=== PATIENT | male | born 1975 | race African-American/Black ===

== ENCOUNTER 2023-06-27 02:28 | Inpatient (IN) | payer MEDICAID, SELFPAY ==
[2023-06-27] VITALS (77 sets, daily range): BP systolic 89–177; BP diastolic 65–118; PULSE 71–117; RESP 16–36; TEMP 35–38.8; O2SAT 79–100; BMI 24.5
--- NOTE | ~2023-06-27 | XR_ITS ---
EXAMINATION: XR chest PICC line INDICATION: PICC insertion TECHNIQUE: Portable AP chest at 1345 hours COMPARISON: 0507 hours FINDINGS: A left upper extremity PICC has been inserted which ends with its tip at the superior cavoa trial junction. There are two left-sided chest tubes. No pneumothorax is identified. Diffuse opacitie s of the left lung and airspace opacities of the right mid and lower lung zones persist but have impr ernu. A small left pleural effusion is suggested. The cardiomediastinal silhouette is stable. Subcuta neous gas in the left chest wall has decreased. The nasogastric tube is in the stomach. The endotrach eal tube ends approximately 5.9 cm above the tamera. IMPRESSION: 1. Left PICC ending with its tip at the superior cavoatrial junction. 2. Bilateral airspace opacities as described above with interval improvement, consistent with pulmona ry edema versus pneumonia versus atelectasis. Reviewed, dictated and finalized at location F. SORTER IMPRESSION: 1. Left PICC ending with its tip at the superior cavoatrial junction. 2. Bilateral airspace opacities as described above with interval improvement, c onsistent with pulmonary edema versus pneumonia versus atelectasis.
--- NOTE | ~2023-06-27 | XR_ITS ---
Portable chest x-ray Comparison: 06/29/2023 Clinical History: Left pneumothorax Findings: 2 left-sided chest tubes and left-sided PICC line are in place. No definite pneumothorax. Left basilar and left perihilar consolidation is again present. There is mild right perihilar airspac e disease. Cardiomediastinal silhouette is stable. Bones and soft tissues are unremarkable. Impression: Stable support tubes. No visible pneumothorax. Left basilar and bilateral perihilar consolidation, left lung worse than right. Correlate for pulmona ry edema/atelectasis versus pneumonia. Reviewed, dictated and finalized at [facility]. TRICAL ENGINEERING INTERN Impression: Stable support tubes. No visible pneumothorax. Left basilar and bilateral perihilar consolidation, left lung worse than right. Correlate for pulmonary edema/atelectasis versus pneumonia.
--- NOTE | ~2023-06-27 | XR_ITS ---
XR chest 1V portable 07/03/2023 06:28 Indication: Left pneumothorax Procedure: AP portable chest Comparison: Comparison to multiple prior studies sequentially, with oldest reviewed study dated 06/18. Findings: Left subclavian PICC line tip in the SVC. Bilateral airspace disease is increased. Small le ft pleural effusion. Small left apical pneumothorax unchanged. Impression: 1: Bilateral airspace disease increased, differential includes edema and pneumonia. 2: Stable small left hydropneumothorax. Reviewed, dictated and finalized at location A. MACY TECHNICIAN INPATIENT Impression: 1: Bilateral airspace disease increased, differential includes edema and pneumo georges. 2: Stable small left hydropneumothorax.
--- NOTE | ~2023-06-27 | XR_ITS ---
CORRECTED REPORT Examination description changed [facility] [place] 06/29/23 This report was recreated on 06/29/23. Original report was IC CLERK EXAMINATION: XR chest ET placement INDICATION: Endotracheal tube insertion TECHNIQUE: Portable AP chest at 0303 hours COMPARISON: 0242 hours FINDINGS: The endotracheal tube ends approximately 5.3 cm above the tamera. The nasogastric tube is followed as far as the stomach. Its tip is beyond the inferior margin of the radiograph. A left apical pneumothorax has increased in size. Airspace opacities of the left lung have also increased. No pleural effusion is identified. The cardiomediastinal silhouette is stable. IMPRESSION: 1. Enlarging left pneumothorax. Finding has been managed at the time of interpretation. 2. Increasing opacities of the left lung which could reflect and/or pulmonary edema as well as atelectasis. 3. Support tubes in adequate position. Reviewed, dictated and finalized at location F. IC CLERK MTDD IMPRESSION: 1. Enlarging left pneumothorax. Finding has been managed at the time of interpr etation. 2. Increasing opacities of the left lung which could reflect and/or pulmonary e garry as well as atelectasis. 3. Support tubes in adequate position.
--- NOTE | ~2023-06-27 | XR_ITS ---
CORRECTED REPORT Examination description changed [facility] [place] 06/29/23 This report was recreated on 06/29/23. Original report was OR LINUX SYSTEMS ADMINISTRATOR EXAMINATION: XR chest-chest tube insert/pos EXAMINATION: XR chest 1V portable INDICATION: Second chest tube placement TECHNIQUE: Portable AP chest at 0507 hours COMPARISON: 0333 hours FINDINGS: A second left-sided chest tube has been inserted which courses towards the left lung apex. The left-sided pneumothorax appears to continue to decrease in size although evaluation is somewhat limited by development of diffuse subcutaneous gas in the left chest wall. There is no pleural effusion. There are stable airspace opacities of the left lung. There are increasing airspace opacities of the right middle lower lung zones. The heart size is normal. IMPRESSION: 1. Apparent continued decrease in size of the left pneumothorax status post second chest tube insertion. 2. Stable diffuse lung disease of the left lung and worsening airspace opacities of the right lung, consistent with pneumonia versus pulmonary edema versus atelectasis. Reviewed, dictated and finalized at location F. OR LINUX SYSTEMS ADMINISTRATOR MTDD IMPRESSION: 1. Apparent continued decrease in size of the left pneumothorax status post sec ond chest tube insertion. 2. Stable diffuse lung disease of the left lung and worsening airspace opacitie s of the right lung, consistent with pneumonia versus pulmonary edema versus at electasis.
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
--- NOTE | ~2023-06-27 | XR_ITS ---
Portable chest x-ray Comparison: 06/27/2023 Clinical History: Respiratory failure Findings: Endotracheal tube, NG tube, and 2 left-sided chest tubes are in place. Small left pleural effusion and left lower lobe atelectasis are present. No definite pneumothorax appreciated. Right bryan g clear. Cardiomediastinal silhouette is stable. Bones and soft tissues are unremarkable. Impression: Support tubes, as above. No definite left pneumothorax seen. Probable left lower lobe atelectasis with small left pleural effusion. Correlate clinically for pneum onia. Reviewed, dictated and finalized at location . IT INTERN Impression: Support tubes, as above. No definite left pneumothorax seen. Probable left lower lobe atelectasis with small left pleural effusion. Correlat e clinically for pneumonia.
--- NOTE | ~2023-06-27 | CT_ITS ---
EXAMINATION: CT brain wo con INDICATION: Altered mental status COMPARISON: None TECHNIQUE: Standard unenhanced head CT. The dose-length product (DLP) was 605.33 mGy-cm. The mA was a djusted according to patient size. Iterative reconstruction technique was employed. FINDINGS: No intracranial hemorrhage, acute infarction, or abnormal mass lesion. The ventricles are n ormal. No abnormal mass effect or midline shift. The berger-white matter differentiation is normal. The basal cisterns are patent. There is a round metallic foreign body in the right orbit. Additional rou nd metallic foreign bodies are also seen in right periorbital soft tissues as well as the left tempor al scalp. There is mild mucosal thickening of the paranasal sinuses. IMPRESSION: 1. No acute intracranial abnormality. 2. Metallic foreign bodies including one in the right orbit. Reviewed, dictated and finalized at location F. ING MACHINE OPERATOR AUTOMATIC
--- NOTE | ~2023-06-27 | XR_ITS ---
CORRECTED REPORT Examination description changed [facility] 06/29/23 This report was recreated on 06/29/23. Original report was E GRADER TENDER EXAMINATION: XR chest-chest tube insert/pos INDICATION: Chest tube insertion TECHNIQUE: Portable AP chest at 0334 hours COMPARISON: 0303 hours FINDINGS: A left-sided chest tube has been inserted. There has been slight decrease in size of the left apical pneumothorax. Airspace opacities of the left lung persists without significant change. The cardiomediastinal silhouette is stable. Endotracheal and nasogastric tubes are unchanged. There is gas in the left chest wall consistent with chest tube insertion. IMPRESSION: 1. Slight decrease in size of the left pneumothorax post chest tube insertion. Otherwise, no significant change. Reviewed, dictated and finalized at location F. E GRADER TENDER MTDD
--- NOTE | ~2023-06-27 | CT_ITS ---
EXAMINATION: CT diagnostic chest wo con DATE: 06/27/2023 04:28 INDICATION: Pneumothorax TECHNIQUE: Computed tomography (CT) of the chest was performed without intravenous contrast. The dose -length product (DLP) was 380.85 mGy-cm. Automated exposure control and iterative reconstruction tech nique were employed. COMPARISON: None FINDINGS: There is a moderate-sized left pneumothorax with slight rightward shift of the mediastinum. A left-sided chest tube is in place which courses into the major fissure. There is a small amount of debris in the chest tube. There is near complete opacification of the right lower lobe. Patchy airsp higinio opacities are present in the right middle and upper lobes. There are moderate airspace opacities throughout the left lung. There is no pleural effusion. No pathologically enlarged thoracic lymph nod es are identified. The heart size is normal. Subcutaneous gas is noted in the left chest wall related to chest tube insertion. There is a probable nondisplaced anterolateral fracture of the left sixth r ib. Endotracheal and nasogastric tubes are in adequate position. IMPRESSION: 1. Left tension pneumothorax with chest tube insertion. 2. Diffuse lung disease as described above, consistent with pneumonia and/or aspiration. 3. Probable nondisplaced anterolateral fracture of the left sixth rib. These findings were transmitted to the Emergency Department at 0509 hours on 06/27/2023 by the [facility] Radiologist. Reviewed, dictated and finalized at location F. RINTENDENT POWER IMPRESSION: 1. Left tension pneumothorax with chest tube insertion. 2. Diffuse lung disease as described above, consistent with pneumonia and/or as piration. 3. Probable nondisplaced anterolateral fracture of the left sixth rib. These findings were transmitted to the Emergency Department at 0509 hours on by the [facility] Radiologist.
--- NOTE | ~2023-06-27 | XR_ITS ---
Portable chest x-ray Comparison: 06/30/2023 Clinical History: Left pneumothorax Findings: 2 left-sided chest tubes, and left-sided PICC line, Ramiro place. No definite pneumothorax i dentified. There is patchy bibasilar and perihilar airspace disease. Possible minimal pleural effusio ns. Cardiomediastinal silhouette is stable. Bones and soft tissues are unremarkable. Impression: Stable support tubes. No visible pneumothorax. Patchy bibasilar and perihilar airspace disease. Correlate for atelectasis/pulmonary edema versus pne umonia. Probable minimal pleural effusions. Reviewed, dictated and finalized at location . TEMPERER Impression: Stable support tubes. No visible pneumothorax. Patchy bibasilar and perihilar airspace disease. Correlate for atelectasis/pulm onary edema versus pneumonia. Probable minimal pleural effusions.
--- NOTE | ~2023-06-27 | XR_ITS ---
EXAMINATION: XR abdomen gastric tube insert INDICATION: OG placement TECHNIQUE: Portable AP [id number] at 0336 hours COMPARISON: None available FINDINGS: The OG tube is in the stomach. The bowel gas pattern is nonspecific. IMPRESSION: 1. OG tube in the stomach. Reviewed, dictated and finalized at location F. IGERATION TECHNICIAN IMPRESSION: 1. OG tube in the stomach.
--- NOTE | ~2023-06-27 | XR_ITS ---
EXAMINATION: XR chest 1V portable INDICATION: Chest tube removal TECHNIQUE: Portable AP chest at 1052 hours COMPARISON: 0553 hours FINDINGS: The chest tubes have been removed. There is a small recurrent left apical pneumothorax. Air space opacities of the lung bases and left midlung zone persist without significant change. There is no pleural effusion. The cardiomediastinal silhouette is normal. A left upper extremity PICC ends wit h this tip in the midsuperior vena cava. IMPRESSION: 1. Small left apical pneumothorax status post chest tube removal, otherwise no change. These findings were discussed with SHANEL Layne on [address] [place] [address] at 1106 hours on 07/02/2023. Reviewed, dictated and finalized at location B. ER STRUCTURAL MILL IMPRESSION: 1. Small left apical pneumothorax status post chest tube removal, otherwise no change. These findings were discussed with SHANEL Layne on [address] [place] [address] at 1106 mat[address] rs on 07/02/2023.
--- NOTE | ~2023-06-27 | XR_ITS ---
EXAMINATION: XR chest 1V portable INDICATION: Left pneumothorax TECHNIQUE: Portable AP chest at 1300 hours COMPARISON: 1052 hours FINDINGS: There is a persistent small left pneumothorax with interval decrease in size. A right upper extremity PICC ends with its tip in the superior vena cava. Airspace opacities of the lung bases and left midlung zone persists without significant change. The cardiomediastinal silhouette is there is no pleural effusion. IMPRESSION: 1. Small left apical pneumothorax with interval decrease in size. 2. Airspace opacities of the lung bases and left midlung zone, consistent with atelectasis versus pne umonia. Reviewed, dictated and finalized at location B. NER TRANSPORT TECHNICIAN IMPRESSION: 1. Small left apical pneumothorax with interval decrease in size. 2. Airspace opacities of the lung bases and left midlung zone, consistent with atelectasis versus pneumonia.
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
--- NOTE | ~2023-06-27 | XR_ITS ---
XR chest 2V 07/04/2023 11:31 Indication: Follow-up pneumothorax Procedure: 2 view chest Comparison: Comparison to multiple prior studies sequentially, with oldest reviewed study dated 06/18. Findings: Stable small left hydropneumothorax. There is bibasilar airspace disease. Small pleural eff usions. PICC line tip in the SVC. There are metallic fragments overlying the left chest, likely bulle t fragments. Impression: 1: Bibasilar airspace disease, consistent with pneumonia. 2: Stable small left hydropneumothorax. Reviewed, dictated and finalized at location A. MAINTENANCE Impression: 1: Bibasilar airspace disease, consistent with pneumonia. 2: Stable small left hydropneumothorax.
--- NOTE | ~2023-06-27 | XR_ITS ---
Portable chest x-ray Comparison: 06/28/2023 Clinical History: Respiratory failure Findings: 2 left-sided chest tubes and left-sided PICC line are in place. No definite pneumothorax s een. There is left perihilar and left lower lobe consolidation. There is haziness in the right perihi lar region and right lower lobe. Cardiomediastinal silhouette is stable. Bones and soft tissues are unremarkable. Impression: Support tubes, as above. No pneumothorax. Bibasilar and bilateral perihilar consolidation, left worse than right. Correlate for pulmonary edema /atelectasis versus pneumonia. Reviewed, dictated and finalized at location . D INCOME ANALYST Impression: Support tubes, as above. No pneumothorax. Bibasilar and bilateral perihilar consolidation, left worse than right. Correla te for pulmonary edema/atelectasis versus pneumonia.
--- NOTE | ~2023-06-27 | XR_ITS ---
Portable chest x-ray Comparison: 07/01/2023 Clinical History: Left pneumothorax Findings: Left-sided chest tube and left-sided PICC line are in place. Second left chest tube has be en removed since prior exam. No definite pneumothorax seen. There is patchy bibasilar and perihilar a irspace disease. Cardiomediastinal silhouette is stable. Bones and soft tissues are unremarkable. Impression: Support tubes, as above. No visible pneumothorax. Patchy bibasilar and left perihilar airspace disease. Correlate for atelectasis or pneumonia. Reviewed, dictated and finalized at location . SOLUTIONS CONSULTANT Impression: Support tubes, as above. No visible pneumothorax. Patchy bibasilar and left perihilar airspace disease. Correlate for atelectasis or pneumonia.
--- NOTE | 2023-06-27 02:31 | PC.NURSE ---
Upon EDP Dr. Fang arrival, decision to intubate due to pt inability to have an open airway. 18 left AC was established at 0232. Pt vitals at 0232 were 67 HR, 19RR, 110/70 blood pressure. Pt was being machinally bagged and sat up and started speaking with EDp Dr. Fang stating My chest is hurting . EMS states that PD began chest compression but upon arrival by EMS chest compressions were not being initiated.
--- NOTE | 2023-06-27 02:35 | PC.NURSE ---
EDp Dr. Fang verbal order for .4 mg of narcan IV. Pt vital signs at this time were 66 HR, 84% on nonrebreather, 27 RR, 110/70. Pt transitioned to a bvm per EDP Dr. Fang. 20 guage IV initated in the pt left wrist at 0238. EDp Dr. Fang verbal order for 8mg of zofran was given through the right 18 guage. Pt was transitioned back to 15L nonrebreather via verbal order from EDP Dr. aFng. Decision to intubate was made at 0239. Pt vital signs are 64 HR, 83% nonrebreather, and 33 RR. 100 of rocc, and 20 of etamidate was verbally ordered by EDP Dr. Fang. Pt states that he does not actively have any allergies. Portable 1 view chest xray was ordered verbally by EDp Dr. Fang.
--- NOTE | 2023-06-27 02:44 | PC.NURSE ---
Chest xray portable 1view was taken, pt vitals at 0244 were 63 HR, 97% nonrebreather, 35 RR, 122/72 blood pressure. 18French mccartney catheter was initated. Pt breathing was shallow and breathing 23 breaths/ minute, decision by EDP Dr. Fang to intubate was made at 0246. Pt vitals signs at 0247 were 64 HR, 96 nonrebreather, 28 RR shallow, and 118/84. 20 of etamidate was pushed at 0248. 100 of rocc was given at 0248. Pt was actively being bagged by respiratory and EDP Dr. Fang. Color change present and 24 at lip, with bilateral lung sounds, with visual chest rise. Pt vital sign at 0251 were 102 HR, 97% bvm, 16 RR, 122/100 blood pressure. Verbal order by EDP Dr. Fang 4mg of ativan, and 1mg of dilaudid. EDp Dr. Fang verbally ordered a repeat chest xray portable 1 view.
--- NOTE | 2023-06-27 03:02 | PC.NURSE ---
EDp to place chest tube due to pneumothorax. 2gs of ancef and tdap were verbally ordered by EDp Dr. Fang. At 0310,bilateral soft wrist restraints due to pt being at risk to injury to himself and pulling at wires/ tubes. At [address] fang placed at 14 guage IV to the pt left chest due to pneumothorax, decision to insert test tube was made by EDp Dr. Fang. 2grams of ancef was started at 100mls/1 hour in a 50 ml bag. Chest tube initiated at 0316 and hooked up to atrium. Tdap shot given in the left bicep at 0317.Lot # [id number], exp. date is 11 OCT 2023.
[2023-06-27] MEDS: TETANUS/DIPHTHERIA TOXOIDS ADSORB 0.5 ML VIAL (*BKC) (03:24)
[2023-06-27] MEDS: LORazepam INJ (*CRX) 2 MG/ML VIAL 4 MG (03:26)
[2023-06-27] MEDS: ONDANSETRON INJ 4 MG/2 ML VIAL 8 MG (03:27)
[2023-06-27] MEDS: HYDROmorphone HCL INJ (*CRX) 1 MG/ML SYR ×2 (03:27→05:23)
[2023-06-27] MEDS: RAPID SEQUENCE INTUBATION KIT 1 EACH ×2 (03:31→05:23)
[2023-06-27 03:32] LABS: Basophils Percent Auto 0.3 % (0.2-1.2); Eosinophils Absolute Auto 0.2 K/mm3 (0-0.3); Eosinophils Percent Auto 1.4 % (0-4.4); Hematocrit 44.4 % (42.0-52.0); Hemoglobin 14.1 g/dL (14.0-18.0); Immature Granulocyte Absolute 0.22 K/mm3 (0.00-0.031); Immature Granulocyte Percent A 1.8 % (0-0.5); Lymphocytes Absolute Auto 6.53 K/mm3 (0.9-3.2); Lymphocytes Percent Auto 52.9 % (18.3-44.2); Mean Corpuscular HGB Conc 31.8 g/dl (32-36); Mean Corpuscular Hemoglobin 30.9 pg (26-34); Mean Corpuscular Volume 97.2 fl (80-100); Monocytes Absolute Auto 0.8 K/mm3 (0.1-0.6); Monocytes Percent Auto 6.7 % (2.6-8.5); Neutrophils Absolute Auto 4.6 K/mm3 (1.3-6.7); Neutrophils Percent Auto 36.9 % (45.5-73.1); Platelet Count Result 186 k/mm3 (150-375); Red Blood Count 4.57 M/mm3 (4.6-6.20); Red Cell Distribution Width 13.2 % (11.5-14.5); White Blood Count 12.4 K/mm3 (4.5-10.0)
--- NOTE | 2023-06-27 03:38 | ECG_ITS ---
Measurements Intervals [place] Rate: 78 P: 44 IA: 135 QRS: 22 QRSD: 100 T: 64 QT: 356 QTc: 408 Interpretive Statements SINUS RHYTHM WITH SINUS ARRHYTHMIA NO PREVIOUS ECG AVAILABLE FOR COMPARISON Electronically Signed On 06-27-2023 10:30:51 [employer]ARM HELPER by Ross Martinez M.D.
[2023-06-27] MEDS: SODIUM CHLORIDE 0.9% IV 2,000 ML 999 ML (03:40)
[2023-06-27 03:41] LABS: Alveolar/Arterial O2 Gradient 573.6 mmHg; Base Excess ABG -7.5 mEq/l (+/-2.0); Fractional Inspired Oxygen 100 %; HCO3 ABG 21.8 mEq/l (22.0-26.0); Oxygen Content ABG 19.4 %vol (16.0-22.0); Oxygen Saturation ABG 92.6 % (95.0-100.0); Oxyhemoglobin 87.9 % THb (90.0-100.0); PCO2 ABG 59.2 mmHg (35.0-45.0); PO2 ABG 80.2 mmHg (80.0-100.0); Total Hemoglobin 15.7 g/dL (12.0-18.0)
[2023-06-27 03:42] LABS: Device VENTILATOR; Modified Allen's Test Pass; Site Drawn RIGHT RADIAL; pH ABG 7.183 (7.350-7.450)
[2023-06-27 03:43] LABS: Arterial Blood Gas PEEP 5 cmH2O; Arterial Blood Gas Tidal Volume 500 ml; Arterial Blood Gas Vent Mode CMV; Arterial Blood Gas Ventilator rate 18 /MIN
[2023-06-27 03:44] LABS: Acetaminophen < 10 ug/mL (10-30); Ethanol 220 mg/dL (<10); Salicylate < 1.0 mg/dL (2-20)
[2023-06-27 03:46] LABS: Amphetamine Screen Urine Negative (Negative); Barbiturate Screen Urine Negative (Negative); Benzodiazepines Screen Urine Negative (Negative); Cannabinoid Screen Urine Negative (Negative); Cocaine Screen Urine Positive (Negative); Methadone Screen Urine Negative (Negative); Opiate Screen Urine Positive (Negative); Phencyclidine Screen Urine Negative (Negative)
[2023-06-27 03:46] LABS: Alanine Aminotransferase 39 U/L (6-50); Albumin Level 4.4 g/dL (3.5-5.1); Alkaline Phosphatase 58 U/L (38-126); Anion Gap 17 mmol/L (8-16); Aspartate Amino Transferase 107 U/L (17-59); Bilirubin,Total 0.5 mg/dL (0.2-1.3); Blood Urea Nitrogen 15 mg/dL (9-20); Calcium 8.9 mg/dL (8.4-10.2); Carbon Dioxide 20 mmol/L (22-30); Chloride 106 mmol/L (98-107); Estimated CRCL calculation 71 ml/min; Estimated Glomerular Filt Rate > 60; Glucose 113 mg/dL (65-110); Potassium 3.4 mmol/L (3.4-5.0); Sodium 143 mmol/L (137-145)
[2023-06-27 03:51] LABS: Appearance Urine Cloudy (Clear); Bacteria Urine None Seen /hpf; Bilirubin Urine Negative (Negative); Blood Urine 2+ (Negative); Color Urine Yellow (Yellow); Glucose Urine UA Negative (Negative); Ketones Urine Trace mg/dL (Negative); Leukocyte Esterase Ur Negative LEU/UL (Negative); Mucus Urine Present /lpf; Need Manual Microscopic Reviewed; Nitrate Urine Negative (Negative); Protein Urine 2+ mg/dL (Negative); RBC Urine 21-50 /hpf (0-2); Specific Grav Ur 1.018 (1.001-1.035); Squamous Epithelial Cell Urine None seen /hpf (Few); Urobilinogen Urine 0.2 mg/dL (<2.0); WBC Urine 0-5 /hpf; pH Urine 5.5 (5.0-9.0)
[2023-06-27 03:52] LABS: Add Urine Microscopic? YES
--- NOTE | 2023-06-27 03:54 | PC.NURSE ---
Addendum entered by Luisa Vann RN 06/27/23 04:49: propofol drip was at 20mcg/ hour NOT mls. Original Note: EDP Dr. Annalisa woodward order pt propofol drip to start at 20mls/ hour and increase by 5mls Q5 minutes as pt blood pressure will tolerate and pt condition.
[2023-06-27] MEDS: PROPOFOL IV EMULSION 100 ML 11.34 MG IV CONT (03:55)
[2023-06-27 04:06] LABS: Triglycerides 296 mg/dL (<150)
--- NOTE | 2023-06-27 04:48 | PC.NURSE ---
EDp Dr. Fang verbal order for 4mg of ativan and 1mg of diluadid. Edp dr. Fang to replace chest tube and put a new chest tube in at 0449.
--- NOTE | 2023-06-27 04:59 | PC.NURSE ---
EDp Dr. Fang verbal order 100mg of rocc due to pt arousal on sedation.
[2023-06-27] MEDS: LORazepam INJ (*CRX) 2 MG/ML VIAL ×2 (05:23)
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
[2023-06-27] MEDS: PIPERACILLN/TAZ 3.375GM/NS50ML 3.375 GM/50 ML BAG IVPB ×4 (06:51→23:53)
[2023-06-27] MEDS: PROPOFOL IV EMULSION 100 ML 28.3 MG (06:55)
--- NOTE | 2023-06-27 07:35 | PC.NURSE ---
Assuming care of PT.
[2023-06-27] MEDS: LACTATED RINGERS 1,000 ML 125 ML IV CONT ×2 (07:50→18:04)
--- NOTE | 2023-06-27 07:55 | PC.NURSE ---
On assessment noted OG tube clamped. Shabazz draining. Propofol infusing at 28.4ml. LR infusing. Dual chest tubes noted with CT 1 output of 30ml and 2nd CT output of 200 stagnant. Pt sedated with VS WNL. Lab at bedside. Inline suctioning performed. Pt continues with mechanical vent. PT GSC 3.
--- NOTE | 2023-06-27 09:34 | PM.IMHP ---
H&P: HPI History of Present Illness Date/Time: 06/27/23 09:34 Chief Complaint: Unresponsive Narrative: 47yo male with hx of drug use here after being found unresponsive by police. Patient is intubated and sedated and unable to provide a history. No phone numbers in the chart for family members. No EMS report but per ED notes, patient 'found unresponsive in the basement'. Family (?) contacted police who fould patient unresponsive. Unsure of what drugs were used. PD gave Narcan 1mg intranasal once and EMS gave 2mg IV. CPR was given in the field. On arrival to the ED, pupils pinpoint with agonal breathing, GCS 7 and was on a non-rebreather mask at 15L with SpO2 91%. Temp was 95 degrees. RR 30-35 . He was hypoxic and in respiratory distress. He did wake up and was able to tell the staff that he was having chest pain and could not breathe. Patient was intubated for respiratory failure. Exam showed bruising and crepitus to the left anterior chest. Repeat chest x-ray showed left pneumothorax requiring needle decompression. A chest tube was placed but was placed and the lateral fissure. CT of the chest confirmed position of the chest tube in the lateral fissure and the fact the patient had a tension pneumothorax. Patient was needle decompressed again with a 2nd chest tube placed. Patient's condition stabilized after 2nd chest tube placement. ABG showed 7.18/59/80 on mechanical ventilation. He had metabolic gap acidosis with borderline normal renal function. Potassium was normal. LFTs normal except for AST 107. Troponin was elevated to 0.12. Urine drug screen is positive for opioids and cocaine. Alcohol level was 220. The CBC was normal except for white count of 12.4 K. patient was treated with Dilaudid, Ativan, IV fluids, and IV antibiotics. He was admitted to the ICU for further care Review of Systems Review of Systems: ROS unobtainable: Yes unobtainable due to endotracheal tube PMFSH Past Medical History Medical History (Updated 06/27/23 @ 10:22 by Devon Posadas MD) Patient unable to provide medical history Family History Family History (Updated 06/27/23 @ 09:50 by Devon Posadas MD) Other Family history unknown Social History Social History (Updated 12/10/23 @ 09:50 by Devon Posadas MD) Social History: Hx of drug abuse. Substance use type: unknown Meds Home Medications and Allergies Allergies Allergy/AdvReac Type Severity Reaction Status Date / Time No Known Allergies Allergy Verified 06/27/23 02:57 Vital Signs Vital Signs - 24 hr 06/27/23 02:24 06/27/23 03:20 06/27/23 03:37 Temperature 95 F L Pulse Rate 71 83 82 Respiratory Rate 27 H Blood Pressure Pulse Oximetry 91 100 Oxygen Delivery Non-Rebreather Mask Mechanical Ventilation Oxygen Flow Rate 15 Fraction of Inspired Oxygen 100 06/27/23 03:55 06/27/23 04:00 06/27/23 03:35 Temperature Pulse Rate 74 112 H 85 Respiratory Rate 20 32 H 17 Blood Pressure Pulse Oximetry Oxygen Delivery Oxygen Flow Rate Fraction of Inspired Oxygen 06/27/23 03:36 06/27/23 03:45 06/27/23 03:46 Temperature Pulse Rate 86 76 80 Respiratory Rate 21 H 20 20 Blood Pressure 175/105 H 174/100 H Pulse Oximetry 96 95 Oxygen Delivery Oxygen Flow Rate Fraction of Inspired Oxygen 06/27/23 03:51 06/27/23 04:32 06/27/23 04:41 Temperature Pulse Rate 75 103 H 107 H Respiratory Rate 20 24 H 24 H Blood Pressure 177/107 H 134/118 H Pulse Oximetry 96 97 92 Oxygen Delivery Oxygen Flow Rate Fraction of Inspired Oxygen 06/27/23 04:45 06/27/23 04:47 06/27/23 04:49 Temperature Pulse Rate 104 H 117 H 104 H Respiratory Rate 24 H 36 H 30 H Blood Pressure 89/75 L 132/92 H Pulse Oximetry 86 L 88 L Oxygen Delivery Oxygen Flow Rate Fraction of Inspired Oxygen 06/27/23 04:51 06/27/23 04:57 06/27/23 05:00 Temperature Pulse Rate 102 H 104 H 102 H Resp
--- NOTE | 2023-06-27 10:01 | WPDCNINT ---
Assessment and Plan Assessment and plan (1) Hypoxic respiratory failure: Code(s): J96.91 - Respiratory failure, unspecified with hypoxia Status: Acute Assessment and Plan: Acute hypoxic respiratory failure secondary to drug overdose and possible aspiration pneumonia. Left pneumothorax aRDS another possibility Vent settings reviewed. Chest x-ray reviewed Repeat ABG ordered Empiric Zosyn Blood and sputum cultures Status post chest tube placement to suction. Air leak still present CT chest report is pending (2) Drug overdose: Code(s): T50.901A - Poisoning by unspecified drugs, medicaments and biological substances, accidental (unintentional), initial encounter Status: Acute Assessment and Plan: Patient had elevated alcohol aspiration and also urine drug screen was positive for cocaine and opioids Currently sedated Continue supportive care (3) Fracture, ribs: Code(s): S22.49XA - Multiple fractures of ribs, unspecified side, initial encounter for closed fracture Status: Acute Assessment and Plan: Conservative management (4) Pneumothorax: Code(s): J93.9 - Pneumothorax, unspecified Status: Acute Assessment and Plan: Status post chest tube placement x2 Chest tube is to suction. One still has air leak Chest x-ray shows improvement (5) Troponin level elevated: Code(s): R79.89 - Other specified abnormal findings of blood chemistry Status: Acute Assessment and Plan: Likely secondary to respiratory failure and cocaine EKG shows normal sinus rhythm Echo ordered (6) Pneumonia: Code(s): J18.9 - Pneumonia, unspecified organism Status: Acute Assessment and Plan: See above (7) Encephalopathy: Code(s): G93.40 - Encephalopathy, unspecified Status: Acute Assessment and Plan: Toxic metabolic encephalopathy secondary to drug abuse and overdose along with alcohol intoxication Head CT reviewed Thiamine and folic acid Check ammonia and TSH (8) Electrolyte abnormality: Code(s): E87.8 - Other disorders of electrolyte and fluid balance, not elsewhere classified Status: Acute Assessment and Plan: Replace low potassium Plan DVT prophylaxis -SCDs Stress ulcer prophylaxis - PPI Nutrition -npo Code Status - Full Code Total Critical Care Time - 35 minutes Due to a high probability of clinically significant, life threatening deterioration, the patient required my highest level of preparedness to intervene emergently and I personally spent this critical care time directly and personally managing the patient. This critical care time included obtaining a history; examining the patient; pulse oximetry; ordering and review of studies; arranging urgent treatment with development of a management plan; evaluation of patient's response to treatment; frequent reassessment; and discussions with other providers. It was exclusive of separately billable procedures and treating other patients and teaching time. Please see Assessment and Plan section and the rest of the note for further information on patient assessment and treatment [facility] Nurse Consult Note Consult date: 06/27/23 Reason for consult: Acute respiratory failure HPI: Nadya Lentz is a 47 year old male was brought to ED after an overdose. Patient was found in a dilapidated house by police unresponsive. He received be CPR and was given Narcan by EMS with improvement in his symptoms. When patient arrived he was hypoxic respiratory distress and tachypneic and was intubated in the ER. Was moving all 4 extremities. No history was not obtainable. Chest x-ray showed pneumothorax and patient had chest tube placed on the left side. Due to position of the chest to additional chest tube was placed left side. Workup in the ER showed white count of 12.4 UA negative for UTI. UDS positive for cocaine and opiates. Level was [address] IMPRESSION: 1.
[2023-06-27] MEDS: PROPOFOL IV EMULSION 100 ML 28.4 MG (10:56)
[2023-06-27 11:10] LABS: Alveolar/Arterial O2 Gradient 416.2 mmHg; Base Excess ABG -3.1 mEq/l (+/-2.0); Fractional Inspired Oxygen 80 %; HCO3 ABG 21.7 mEq/l (22.0-26.0); Oxygen Content ABG 19.4 %vol (16.0-22.0); Oxygen Saturation ABG 98.1 % (95.0-100.0); Oxyhemoglobin 96.7 % THb (90.0-100.0); PCO2 ABG 38.3 mmHg (35.0-45.0); PO2 FiO2 Ratio Arterial Blood 1.42 %; Total Hemoglobin 14.2 g/dL (12.0-18.0); pH ABG 7.372 (7.350-7.450)
[2023-06-27 11:34] LABS: Ammonia < 9 umol/L (9-30); Lactic Acid Reflex 3.5 mmol/L (0.7-2.0)
[2023-06-27] MEDS: POTASSIUM CHLORIDE INJ 40 MEQ in SODIUM CHLORIDE 0.9% IV 500 ML 125 MEQ IVPB (11:40)
[2023-06-27 12:15] LABS: Hepatitis B Surface Antigen Negative (Negative)
[2023-06-27 12:21] LABS: HAV RESULT Negative (Negative); Hepatitis B Core IgM Result Negative (Negative)
[2023-06-27 12:22] LABS: HIV 1/2 Ab P24 Ag Result Negative (Negative)
--- NOTE | 2023-06-27 12:29 | ADMGEN ---
This patient, Nadya Lentz, was admitted to Intensive Care Unit-12 at 0910. Patient/family oriented to hospital policies and general routines including ID bracelet, bed and alarms, visiting hours, pain management, procedures, bathroom and other care routines, personal items, smoking policy, room service/diet, and visiting hours. Information on how to activate the Rapid Response Team has been discussed. Patient/Family are encouraged to report perceived risks to care and to ask questions if they do not understand what they are told or what they should do.
[2023-06-27 12:33] LABS: Hepatitis C Virus Antibody Negative (Negative)
[2023-06-27 12:35] LABS: Device VENTILATOR; Site Drawn RIGHT RADIAL
[2023-06-27] MEDS: THIAMINE HCL 200 MG/2 ML VIAL 100 MG IV PUSH (12:35)
[2023-06-27 12:36] LABS: Arterial Blood Gas PEEP 5 cmH2O; Arterial Blood Gas Tidal Volume 500 ml; Arterial Blood Gas Vent Mode CMV; Arterial Blood Gas Ventilator rate 20 /MIN
[2023-06-27] MEDS: PANTOPRAZOLE SODIUM IV 40 MG VIAL IV PUSH (12:37)
[2023-06-27 14:21] LABS: Reflex Lactic Acid Yes or No Add Lactic
[2023-06-27] MEDS: PROPOFOL IV EMULSION 100 ML 25.38 MG IV CONT ×3 (15:03→21:40)
--- NOTE | 2023-06-27 15:39 | PC.NURSE ---
Patient's wallet given to his daughter to take home.
[2023-06-27 16:11] LABS: Lactic Acid 1.1 mmol/L (0.7-2.0)
[2023-06-27] MEDS: FOLIC ACID 1 MG/0.2 ML INJ IV PUSH (16:57)
[2023-06-27] MEDS: ACETAMINOPHEN ELIXIR 325 MG/10.15 ML UDC 650 MG PO ×2 (18:09→21:59)
[2023-06-27] MEDS: MIDAZOLAM HCL (*CRX) 2 MG/2 ML VIAL IV PUSH (21:10)
[2023-06-27] MEDS: MIDAZOLAM HCL (*CRX) 2 MG/2 ML VIAL 4 MG IV PUSH (21:41)
[2023-06-27] MEDS: MIDAZOLAM 100MG/NS 100ML(*CRX) 100 MG/100 ML BAG IV CONT (21:51)
[2023-06-27] MEDS: CENTRAL LINE FLUSH 10 ML IV PUSH (21:59)
[2023-06-27] MEDS: MINERAL OIL/WHITE PETROLATUM OINTMENT 1 APPLIC EACH EYE (21:59)
[2023-06-28] VITALS (31 sets, daily range): BP systolic 96–130; BP diastolic 70–97; PULSE 69–94; RESP 17–30; TEMP 37.1–38.4; O2SAT 89–100; BMI 25.8
--- NOTE | 2023-06-28 | ECHOL_ITS ---
Patient Info Name: Nadya Lentz Age: 47 years : 1975 Gender: Male Ht: 73 in Wt: 208 lbs BSA: 2.22 m2 HR: 78 bpm BP: 96 / 70 mmHg Heart Rhythm: Sinus Rhythm Technical Quality: Fair Exam Date: 06/28/2023 2:16 PM Exam Location: Echo Lab Exam Room: ICU12 Patient Status: Inpatient Admit Date: 06/27/2023 Staff Ordering Physician: Dani Blevins MD Laborer Hoisting: Chela Montoya RDCS Attending Provider: Seamus Patel MD Exam Type: CA echo limited Study Info Indications - resp distress s/p cpr chest tubes in place eval effusion Limited two-dimensional transthoracic echocardiogram is performed. Summary 1. Left ventricular systolic function is normal, estimated at 60-65%. 2. Right ventricular systolic function is normal. 3. Normal inferior vena cava with >50% collapse upon inspiration consistent with normal right atrial pressure, 3 mmHg. 4. There is no pericardial effusion. Left Ventricle Left ventricular chamber dimension is normal. Left ventricular systolic function is normal, estimated at 60-65%. Right Ventricle Right ventricular chamber dimension is normal. Right ventricular systolic function is normal. Left Atria Left atrial chamber dimension is mildly enlarged. Right Atria Right atrial chamber dimension is normal. Atrial Septum Intact interatrial septum visualized by color flow imaging. Aortic Valve The aortic valve is not well visualized. Pulmonic Valve The pulmonic valve is not well visualized. Mitral Valve The mitral valve has normal leaflets. Tricuspid Valve There is trace tricuspid valve regurgitation. Pericardium/Pleural There is no pericardial effusion. Inferior Vena Cava Normal inferior vena cava with >50% collapse upon inspiration consistent with normal right atrial pressure, 3 mmHg. Aorta The aortic root size at the sinus of Valsalva is normal. Left Ventricular Outflow Tract Name Value Normal LVOT 2D LVOT Diameter 2.1 cm Tricuspid Valve Name Value Normal Estimated PAP/RSVP RA Pressure 3 mmHg <=5 Aortic Valve Name Value Normal AV Regurgitation 2D LVOT Area 3.4 cm2 Ventricles Name Value Normal LV Dimensions 2D/MM LVOT Diameter 2.1 cm Report Signatures
[2023-06-28] MEDS: PROPOFOL IV EMULSION 100 ML 25.38 MG IV CONT ×3 (00:34→09:41)
[2023-06-28] MEDS: LACTATED RINGERS 1,000 ML 125 ML IV CONT (02:22)
--- NOTE | 2023-06-28 03:11 | PC.NURSE ---
0120 Dr Patel assessed area of crepitus. NPO, will continue to monitor.
[2023-06-28 05:34] LABS: Hematocrit 37.8 % (42.0-52.0); Hemoglobin 12.4 g/dL (14.0-18.0); Mean Corpuscular HGB Conc 32.8 g/dl (32-36); Mean Corpuscular Hemoglobin 31.3 pg (26-34); Mean Corpuscular Volume 95.5 fl (80-100); Mean Platelet Volume 11.8 fl (7.4-10.4); Platelet Count Result 148 k/mm3 (150-375); Red Blood Count 3.96 M/mm3 (4.6-6.20); Red Cell Distribution Width 13.3 % (11.5-14.5); White Blood Count 17.1 K/mm3 (4.5-10.0)
[2023-06-28 05:36] LABS: Alveolar/Arterial O2 Gradient 109.1 mmHg; Carboxyhemoglobin 0.3 % THb (0-2.0); Fractional Inspired Oxygen 30 %; HCO3 ABG 25.1 mEq/l (22.0-26.0); Methemoglobin ABG 0.2 %THb (0-1.5); Oxygen Content ABG 17.2 %vol (16.0-22.0); Oxygen Saturation ABG 91.7 % (95.0-100.0); Oxyhemoglobin 89.8 % THb (90.0-100.0); PCO2 ABG 38.4 mmHg (35.0-45.0); PO2 ABG 59.7 mmHg (80.0-100.0); PO2 FiO2 Ratio Arterial Blood 1.99 %; Reduced Hemoglobin 9.7 %THb (0-5.0); Total Hemoglobin 13.6 g/dL (12.0-18.0); pH ABG 7.433 (7.350-7.450)
[2023-06-28 05:37] LABS: Modified Allen's Test Pass; Site Drawn RIGHT RADIAL
[2023-06-28 05:38] LABS: Arterial Blood Gas PEEP 5 cmH2O; Arterial Blood Gas Tidal Volume 500 ml; Arterial Blood Gas Vent Mode CMV; Arterial Blood Gas Ventilator rate 20 /MIN; Device VENTILATOR
[2023-06-28 05:51] LABS: Potassium 3.7 mmol/L (3.4-5.0)
[2023-06-28 05:59] LABS: Alanine Aminotransferase 25 U/L (6-50); Albumin Level 3.3 g/dL (3.5-5.1); Alkaline Phosphatase 52 U/L (38-126); Anion Gap 4 mmol/L (8-16); Aspartate Amino Transferase 40 U/L (17-59); Bilirubin,Total 0.8 mg/dL (0.2-1.3); Blood Urea Nitrogen 11 mg/dL (9-20); Calcium 8.6 mg/dL (8.4-10.2); Carbon Dioxide 28 mmol/L (22-30); Chloride 105 mmol/L (98-107); Estimated CRCL calculation 127 ml/min; Estimated Glomerular Filt Rate > 60; Glucose 107 mg/dL (65-110); Sodium 137 mmol/L (137-145)
[2023-06-28] MEDS: PIPERACILLN/TAZ 3.375GM/NS50ML 3.375 GM/50 ML BAG IVPB ×3 (06:24→17:52)
[2023-06-28] MEDS: ACETAMINOPHEN ELIXIR 325 MG/10.15 ML UDC 650 MG PO (06:26)
[2023-06-28] MEDS: THIAMINE HCL 200 MG/2 ML VIAL 100 MG IV PUSH (08:21)
[2023-06-28] MEDS: FOLIC ACID 1 MG/0.2 ML INJ IV PUSH (08:21)
[2023-06-28] MEDS: PANTOPRAZOLE SODIUM IV 40 MG VIAL IV PUSH (08:21)
[2023-06-28] MEDS: CENTRAL LINE FLUSH 10 ML IV PUSH ×3 (08:22→23:14)
[2023-06-28] MEDS: MINERAL OIL/WHITE PETROLATUM OINTMENT 1 APPLIC EACH EYE ×2 (08:22→23:14)
[2023-06-28] MEDS: dexmedeTOMIDine 400 MCG/100 ML 400 MCG/100 ML BAG 15.56 MCG IV CONT (09:41)
--- NOTE | 2023-06-28 11:08 | WPDINTPN ---
Progress Note: A&P Assessment and Plan (1) Hypoxic respiratory failure: Code(s): J96.91 - Respiratory failure, unspecified with hypoxia Status: Acute Assessment and Plan: Acute hypoxic respiratory failure secondary to drug overdose and possible aspiration pneumonia. Left pneumothorax aRDS another possibility Vent settings and ABG reviewed. Chest x-ray reviewed Continue empiric Zosyn Blood and sputum cultures pending Status post chest tube placement to suction. Air leak still present CT chest IMPRESSION: 1. Left tension pneumothorax with chest tube insertion. 2. Diffuse lung disease as described above, consistent with pneumonia and/or aspiration. 3. Probable nondisplaced anterolateral fracture of the left sixth rib. I attempted a PSV weaning trial this morning but patient became tachypneic and a synchronous with the ventilator. Will start patient on Precedex re-attempt trial later. Will give a dose of opioid prior to trial to treat pain as potential cause of tachypnea (2) Drug overdose: Code(s): T50.901A - Poisoning by unspecified drugs, medicaments and biological substances, accidental (unintentional), initial encounter Status: Acute Assessment and Plan: Patient had elevated alcohol aspiration and also urine drug screen was positive for cocaine and opioids Currently sedated Continue supportive care (3) Fracture, ribs: Code(s): S22.49XA - Multiple fractures of ribs, unspecified side, initial encounter for closed fracture Status: Acute Assessment and Plan: Conservative management (4) Pneumothorax: Code(s): J93.9 - Pneumothorax, unspecified Status: Acute Assessment and Plan: Status post chest tube placement x2 Chest tube is to suction. One still has air leak Chest x-ray shows improvement (5) Troponin level elevated: Code(s): R79.89 - Other specified abnormal findings of blood chemistry Status: Acute Assessment and Plan: Likely secondary to respiratory failure and cocaine EKG shows normal sinus rhythm Echo ordered (6) Pneumonia: Code(s): J18.9 - Pneumonia, unspecified organism Status: Acute Assessment and Plan: See above (7) Encephalopathy: Code(s): G93.40 - Encephalopathy, unspecified Status: Acute Assessment and Plan: Toxic metabolic encephalopathy secondary to drug abuse and overdose along with alcohol intoxication Head CT reviewed Thiamine and folic acid Normal ammonia and TSH (8) Electrolyte abnormality: Code(s): E87.8 - Other disorders of electrolyte and fluid balance, not elsewhere classified Status: Acute Assessment and Plan: Replace low potassium Plan DVT prophylaxis -SCDs Stress ulcer prophylaxis - PPI Nutrition -if patient does not extubated will start tube feeds Code Status - Full Code Total Critical Care Time - 32 minutes Due to a high probability of clinically significant, life threatening deterioration, the patient required my highest level of preparedness to intervene emergently and I personally spent this critical care time directly and personally managing the patient. This critical care time included obtaining a history; examining the patient; pulse oximetry; ordering and review of studies; arranging urgent treatment with development of a management plan; evaluation of patient's response to treatment; frequent reassessment; and discussions with other providers. It was exclusive of separately billable procedures and treating other patients and teaching time. Please see Assessment and Plan section and the rest of the note for further information on patient assessment and treatment Subjective Date/time seen: 06/28/23 Overnight events reviewed. Low-grade fever Continues to be on mechanical ventilation FiO2 down to 30% and peep is at [address] with air leak from 1 chest tube Continues to be sedated with propofol and Versed was added la
[2023-06-28] MEDS: LACTATED RINGERS 1,000 ML 75 ML IV CONT (11:45)
[2023-06-28 13:13] LABS: Alveolar/Arterial O2 Gradient 95.1 mmHg; Base Excess ABG 2.4 mEq/l (+/-2.0); Fractional Inspired Oxygen 30 %; HCO3 ABG 26.8 mEq/l (22.0-26.0); Oxygen Content ABG 16.2 %vol (16.0-22.0); Oxygen Saturation ABG 94.8 % (95.0-100.0); Oxyhemoglobin 93.4 % THb (90.0-100.0); PCO2 ABG 40.5 mmHg (35.0-45.0); PO2 ABG 71.2 mmHg (80.0-100.0); PO2 FiO2 Ratio Arterial Blood 2.37 %; Total Hemoglobin 12.3 g/dL (12.0-18.0); pH ABG 7.438 (7.350-7.450)
[2023-06-28 13:16] LABS: Device VENTILATOR; Modified Allen's Test Pass; Site Drawn RIGHT RADIAL
[2023-06-28 13:17] LABS: Arterial Blood Gas Vent Mode SPONTANEOUS
[2023-06-28 13:18] LABS: Arterial Blood Gas PEEP 5 cmH2O; Arterial Blood Gas Pressure Support 8 cmH2O
--- NOTE | 2023-06-28 14:36 | PCRCNOTE ---
0900 ABG not completed due to pt not being ready to complete weaning trial. New ABG order completed at 1250.
--- NOTE | 2023-06-28 16:01 | PM.IMPN ---
Progress Note: A&P Assessment and Plan (1) Hypoxic respiratory failure: Code(s): J96.91 - Respiratory failure, unspecified with hypoxia Status: Acute Assessment and Plan: Patient presents by EMS after being found unresponsive.? Unclear if patient had cardiopulmonary arrest in the field but CPR was started.? Respiratory failure related to unintentional drug overdose.? His condition worsened in the ED related to pneumothorax and possibly pneumonia. Patient intubated on 06/27 and admitted to ICU Patient stabilized. MV weaned down and able to extubated 06/28 [facility] [employer] following and appreciate their input Wean o2 as tolerated. (2) Tension pneumothorax: Code(s): J93.0 - Spontaneous tension pneumothorax Status: Acute Assessment and Plan: Initial chest x-ray on admission showing tiny left apical pneumothorax. This progressed to the point patient required needle decompression and chest tube placement. CT of the chest preliminary reading showed tension pneumothorax and right shift with some debris noted the chest tube. Patient underwent 2nd needle decompression and 2nd chest tube placed. Repeat imaging showed decrease in the left pneumothorax. Management of chest tube per heater furnace (3) Drug overdose: Code(s): T50.901A - Poisoning by unspecified drugs, medicaments and biological substances, accidental (unintentional), initial encounter Status: Acute Assessment and Plan: Patient found unresponsive most likely related to unintentional drug overdose.? Urine drug screen positive for opiates and cocaine.? Alcohol level was 220.? HIV and heaptitis panel negative Will need to monitor for withdrawal symptoms as sedation is weaned Remains on precedex (4) Fracture, ribs: Code(s): S22.49XA - Multiple fractures of ribs, unspecified side, initial encounter for closed fracture Status: Acute Assessment and Plan: Preliminary CT report shows minor fracturing of the anterior medial aspect of the left ribs. Related to CPR performed in the field Symptomatic care (5) Troponin level elevated: Code(s): R79.89 - Other specified abnormal findings of blood chemistry Status: Acute Assessment and Plan: Troponin elevated on admission to 0.12. EKG was reviewed personally showing normal sinus rhythm with sinus arrhythmia with poor R-wave progression otherwise no acute findings. Troponin elevation most likely related to CPR and respiratory failure. Trend troponins. Echo pending Hold off on ASA at this time (6) Pneumonia: Code(s): J18.9 - Pneumonia, unspecified organism Status: Acute Assessment and Plan: CT chest showing consolidation bilateral lower lobes. Consider aspiration PNA. Zosyn started. BCx 06/27: pending Sputun Cx 12: pending WBC higher. CXR this morning on MV showing LLL atelectasis with small left pleural effusion Follow (7) Encephalopathy: Code(s): G93.40 - Encephalopathy, unspecified Status: Acute Assessment and Plan: Patient found obtunded in the field. [place] related to unintentional drug overdose. CT head showing no acute intracranial abnormalities. Does have small metallic foreign bodies noted. TSH mildly elevated. Ammonia level negative Continue to re-orient; should improve as Precedex is weaned (8) Electrolyte abnormality: Code(s): E87.8 - Other disorders of electrolyte and fluid balance, not elsewhere classified Status: Acute Assessment and Plan: Patient with metabolic gap acidosis. Probably related to lactic acidosis from being down. lactic acid pending. DKA unlikely. Follow (9) Alcohol intoxication: Code(s): F10.929 - Alcohol use, unspecified with intoxication, unspecified Status: Acute Assessment and Plan: Patient with elevated alcohol level on admission. AST at 107 with normal ALT consistent with alcohol use. LFTs o/w normal. Thi
[2023-06-28] MEDS: dexmedeTOMIDine 400 MCG/100 ML 400 MCG/100 ML BAG IV CONT (16:48)
[2023-06-28] MEDS: HYDROmorphone HCL INJ (*CRX) 1 MG/ML SYR 0.5 MG IV PUSH ×2 (17:47→22:47)
[2023-06-29] VITALS (19 sets, daily range): BP systolic 101–145; BP diastolic 69–96; PULSE 66–90; RESP 18–43; TEMP 37.2–38.3; O2SAT 93–100
[2023-06-29] MEDS: ACETAMINOPHEN 325 MG TABLET 650 MG PO ×2 (00:45→20:13)
[2023-06-29] MEDS: PIPERACILLN/TAZ 3.375GM/NS50ML 3.375 GM/50 ML BAG IVPB ×5 (00:46→23:54)
[2023-06-29] MEDS: LACTATED RINGERS 1,000 ML 75 ML IV CONT (02:09)
[2023-06-29 05:05] LABS: Hematocrit 31.1 % (42.0-52.0); Hemoglobin 10.2 g/dL (14.0-18.0); Immature Platelet Fraction Pct 9.8 % (0.9-11.2); Mean Corpuscular HGB Conc 32.8 g/dl (32-36); Mean Corpuscular Hemoglobin 31.5 pg (26-34); Mean Platelet Volume 11.1 fl (7.4-10.4); Platelet Count Result 134 k/mm3 (150-375); Red Blood Count 3.24 M/mm3 (4.6-6.20); Red Cell Distribution Width 13.1 % (11.5-14.5); White Blood Count 11.9 K/mm3 (4.5-10.0)
[2023-06-29 05:13] LABS: Alanine Aminotransferase 16 U/L (6-50); Albumin Level 2.8 g/dL (3.5-5.1); Alkaline Phosphatase 47 U/L (38-126); Anion Gap 5 mmol/L (8-16); Aspartate Amino Transferase 23 U/L (17-59); Bilirubin,Total 1.1 mg/dL (0.2-1.3); Blood Urea Nitrogen 8 mg/dL (9-20); Calcium 8.4 mg/dL (8.4-10.2); Carbon Dioxide 24 mmol/L (22-30); Chloride 105 mmol/L (98-107); Estimated CRCL calculation 127 ml/min; Estimated Glomerular Filt Rate > 60; Glucose 95 mg/dL (65-110); Magnesium 1.8 mg/dL (1.6-2.3); Potassium 3.9 mmol/L (3.4-5.0); Sodium 134 mmol/L (137-145); Triglycerides 239 mg/dL (<150)
[2023-06-29 05:36] LABS: Alveolar/Arterial O2 Gradient 186.8 mmHg; Base Excess ABG 3.3 mEq/l (+/-2.0); Carboxyhemoglobin 0.3 % THb (0-2.0); Fractional Inspired Oxygen 44 %; HCO3 ABG 28.3 mEq/l (22.0-26.0); Methemoglobin ABG 0.2 %THb (0-1.5); Modified Allen's Test Pass; Oxygen Saturation ABG 95.4 % (95.0-100.0); Oxyhemoglobin 94.4 % THb (90.0-100.0); PCO2 ABG 44.5 mmHg (35.0-45.0); PO2 ABG 76.2 mmHg (80.0-100.0); PO2 FiO2 Ratio Arterial Blood 1.73 %; Reduced Hemoglobin 5.1 %THb (0-5.0); Site Drawn RIGHT RADIAL; Total Hemoglobin 15.8 g/dL (12.0-18.0); pH ABG 7.422 (7.350-7.450)
[2023-06-29 05:37] LABS: Device HIGH FLOW NASAL CANN
[2023-06-29] MEDS: HYDROmorphone HCL INJ (*CRX) 1 MG/ML SYR 0.5 MG IV PUSH ×3 (06:33→20:16)
[2023-06-29] MEDS: CENTRAL LINE FLUSH 10 ML IV PUSH ×3 (06:34→20:17)
[2023-06-29] MEDS: amLODIPine BESYLATE 5 MG TABLET PO (08:53)
[2023-06-29] MEDS: PANTOPRAZOLE SODIUM IV 40 MG VIAL IV PUSH (08:54)
[2023-06-29] MEDS: MAGNESIUM SULF 1 GM/D5W 100 ML 1 GM/100 ML BAG IVPB (08:54)
[2023-06-29] MEDS: FOLIC ACID 1 MG/0.2 ML INJ IV PUSH (08:54)
[2023-06-29] MEDS: THIAMINE HCL 200 MG/2 ML VIAL 100 MG IV PUSH (08:56)
--- NOTE | 2023-06-29 09:39 | WPDINTPN ---
Progress Note: A&P Assessment and Plan (1) Hypoxic respiratory failure: Code(s): J96.91 - Respiratory failure, unspecified with hypoxia Status: Acute Assessment and Plan: Acute hypoxic respiratory failure secondary to drug overdose and possible aspiration pneumonia. Left pneumothorax 06/28 extubated after a successful weaning trial and now on nasal cannula. Chest x-ray reviewed Continue empiric Zosyn Blood and sputum cultures pending Status post chest tube placement to suction. Air leak still present CT chest IMPRESSION: 1. Left tension pneumothorax with chest tube insertion. 2. Diffuse lung disease as described above, consistent with pneumonia and/or aspiration. 3. Probable nondisplaced anterolateral fracture of the left sixth rib. Continue pain control, add incentive spirometer Consult pulmonary to manage pneumothorax and chest tubes outside ICU (2) Drug overdose: Code(s): T50.901A - Poisoning by unspecified drugs, medicaments and biological substances, accidental (unintentional), initial encounter Status: Acute Assessment and Plan: Patient had elevated alcohol aspiration and also urine drug screen was positive for cocaine and opioids Thiamine and folic acid Continue supportive care and monitor for signs of withdrawal (3) Fracture, ribs: Code(s): S22.49XA - Multiple fractures of ribs, unspecified side, initial encounter for closed fracture Status: Acute Assessment and Plan: Conservative management and pain control (4) Pneumothorax: Code(s): J93.9 - Pneumothorax, unspecified Status: Acute Assessment and Plan: Status post chest tube placement x2 Chest tube is to suction. One still has air leak Chest x-ray shows improvement See above (5) Troponin level elevated: Code(s): R79.89 - Other specified abnormal findings of blood chemistry Status: Acute Assessment and Plan: Likely secondary to respiratory failure and cocaine EKG shows normal sinus rhythm Limited echo was done and report is pending (6) Pneumonia: Code(s): J18.9 - Pneumonia, unspecified organism Status: Acute Assessment and Plan: See above (7) Encephalopathy: Code(s): G93.40 - Encephalopathy, unspecified Status: Acute Assessment and Plan: Toxic metabolic encephalopathy secondary to drug abuse and overdose along with alcohol intoxication Head CT reviewed Thiamine and folic acid Normal ammonia and TSH Patient now AO x3 (8) Electrolyte abnormality: Code(s): E87.8 - Other disorders of electrolyte and fluid balance, not elsewhere classified Status: Acute Assessment and Plan: Electrolytes improved after placement Plan DVT prophylaxis -SCDs Stress ulcer prophylaxis - PPI Nutrition -advance diet Code Status - Full Code Transfer out of ICU today Subjective Date/time seen: 06/29/23 Patient was extubated after a successful weaning trial. He was on Precedex overnight which has been weaned off this morning. Continues to have chest tubes on the left side air leak coming from 1. He states that he does not remember what happened and how he ended up at the place where he was found. He does admit to drinking alcohol heavily every day, smoking pack of cigarettes daily and also smoking cocaine. He denies any other drug use and denies any opioid use. At this time patient states that he has pain on the left side of the chest with the chest tubes are in place and the pain is worse with deep breathing. He rates it at 4 to 5/10, also complains of sore throat and some cough is essentially dry. He denies any fever. He denies any nausea vomiting abdominal pain. All other systems were reviewed and were negative Review of Systems Review of Systems: All systems reviewed & are unremarkable except as noted in HPI and below (HPI) Exam Narrative: General: Pt is s alert awake and in no distress Lungs/Chest: Trachea janice
--- NOTE | 2023-06-29 10:51 | PCNFU ---
Nutrition Follow-Up Complete: Increased protein energy needs related to mechanical ventilation as evidenced by need for full tube feeding Goal: Meet estimated protein energy needs Patient is progressing towards goal. We will continue current goal. Pt current nutrition is Regular Last recorded weight is 88.9 kg, stable Bowel Motility: No BM reported. Labs Reviewed:TG 239,BUN 8, Na 134, Alb 2.8,Hct 31.3,Hgb 10.2 Meds Noted: Precedex, Protonix, Thiamine, Folic Acid Skin: WNL Additional Notes: Patient has been extubated. Diet order has advanced to a regular diet. Agree with diet orders. No further nutritional interventions needed. Monitor diet orders, vent status, plan of care, labs, weights Follow daily in rounds and reassessing every 7 days.
--- NOTE | 2023-06-29 11:09 | PM.CNPUL ---
Assessment and Plan Assessment and plan (1) Tension pneumothorax: Code(s): J93.0 - Spontaneous tension pneumothorax Status: Acute Assessment and Plan: Patient reports a history of asthma, was found unresponsive and received CPR and subsequently developed a left tension pneumothorax with a probable left 6th rib fracture. Incomplete re-expansion after the 1st chest tube and a 2nd chest tube was placed. There is no thoracic surgery services at our hospital so I was consulted for chest tube management. Currently the patient is in no respiratory distress and he has 2 chest tubes in both at 20 cm water pressure. Chest tube #1 has a brisk air leak and had 200 mL out overnight. Chest tube #2. Has no air leak with 100 mL out overnight. Chest x-ray this morning shows no pneumothorax. Plan: I have placed chest tube #2 on water seal. I will repeat a chest x-ray in the morning. If there is no pneumothorax, I will consider decreasing the suction on the chest tube #1. Discussed with the banquet server on call. Will follow with you. History of Present Illness History of Present Illness Consult date: 06/29/23 Chief complaint: Overdose Narrative: 06/29/2023: This is a new pulmonary consult for chest tube management. 47-year-old male with a history of asthma on inhalers, drug use was found unresponsive on 06/27/2023. He was given Narcan and CPR was performed. He had some improvement with Narcan. In the emergency room he was in respiratory distress and found to have a left-sided tension pneumothorax. The 1st chest tube was placed but there was incomplete re-expansion of the lung. CT scan demonstrated tension pneumothorax with 1 chest tube inserted and a probable nondisplaced anterior lateral fracture of the left 6th rib. A 2nd chest tube was placed. The patient had bibasilar infiltrates on his CT scan of the chest and was started on Zosyn empirically for possible aspiration. The patient was extubated on 06/28/2023 at approximately 1:00 p.m. and he scheduled to be transferred out of the ICU. There is no thoracic surgery at our hospital so I was consulted. I spoke to the banquet server on call and chest tube 1. Has had a persistent air leak while he was on the ventilator and at remains with a persistent air leak on 20 mL suction. Chested 2. As never had an air leak and had 100 mL drainage overnight. 06/29/23: Currently the patient is in no respiratory distress on 5 L nasal cannula saturations 98%. He says he has no cough but he does have some phlegm production. He does complain of left-sided chest pain. White blood cell count is 11.9, decreased from 17.1 yesterday. Chest x-ray this morning shows 2 left-sided chest tubes, left-sided PICC no pneumothorax, bibasilar infiltrates left greater than right. DATA: 06/29/23: Portable chest x-ray Comparison: 06/28/2023 Clinical History: Respiratory failure Findings:? 2 left-sided chest tubes and left-sided PICC line are in place. No definite pneumothorax seen. There is left perihilar and left lower lobe consolidation. There is haziness in the right perihilar region and right lower lobe.? Cardiomediastinal silhouette is stable. Bones and soft tissues are unremarkable. ? Impression: ? Support tubes, as above. No pneumothorax. Bibasilar and bilateral perihilar consolidation, left worse than right. Correlate for pulmonary edema/atelectasis versus pneumonia. 06/27/23: EXAMINATION: CT diagnostic chest wo con DATE: 06/27/2023 04:28 INDICATION: Pneumothorax TECHNIQUE: Computed tomography (CT) of the chest was performed without intravenous contrast. The dose-length product (DLP) was 380.85 mGy-cm. Automated exposure control and iterative reconstruction technique were employed. COMPARISON: None FINDINGS: There is a moderate-sized left pneumothorax with slight rightward shift of the mediastinum. A left-sided chest tube is in place which courses into the major fissure.
[2023-06-29] MEDS: HYDROcodone/acetaminophen (*CRX) 5-325 MG TABLET 1 TAB PO (12:42)
--- NOTE | 2023-06-29 14:16 | PC.NURSE ---
Dr. Loyd called and notified pt having slight increase in work of breathing and stating he is a little short of breath. Stat chest xray ordered.
--- NOTE | 2023-06-29 18:30 | PM.IMPN ---
Progress Note: A&P Assessment and Plan (1) Hypoxic respiratory failure: Code(s): J96.91 - Respiratory failure, unspecified with hypoxia Status: Acute Assessment and Plan: Patient presents by EMS after being found unresponsive.? Unclear if patient had cardiopulmonary arrest in the field but CPR was started.? Respiratory failure related to unintentional drug overdose.? His condition worsened in the ED related to pneumothorax and possibly pneumonia. Patient intubated on 06/27 and admitted to ICU Patient stabilized. MV weaned down and able to extubated 06/28 Director Toxicology following and appreciate their input Wean o2 as tolerated. (2) Tension pneumothorax: Code(s): J93.0 - Spontaneous tension pneumothorax Status: Acute Assessment and Plan: Initial chest x-ray on admission showing tiny left apical pneumothorax. This progressed to the point patient required needle decompression and chest tube placement. CT of the chest preliminary reading showed tension pneumothorax and right shift with some debris noted the chest tube. Patient underwent 2nd needle decompression and 2nd chest tube placed. Repeat imaging showed decrease in the left pneumothorax. Management of chest tube per storekeeper helper (3) Drug overdose: Code(s): T50.901A - Poisoning by unspecified drugs, medicaments and biological substances, accidental (unintentional), initial encounter Status: Acute Assessment and Plan: Patient found unresponsive most likely related to unintentional drug overdose.? Urine drug screen positive for opiates and cocaine.? Alcohol level was 220.? HIV and heaptitis panel negative Will need to monitor for withdrawal symptoms as sedation is weaned Off precedex now (4) Fracture, ribs: Code(s): S22.49XA - Multiple fractures of ribs, unspecified side, initial encounter for closed fracture Status: Acute Assessment and Plan: Preliminary CT report shows minor fracturing of the anterior medial aspect of the left ribs. Related to CPR performed in the field Symptomatic care (5) Troponin level elevated: Code(s): R79.89 - Other specified abnormal findings of blood chemistry Status: Acute Assessment and Plan: Troponin elevated on admission to 0.12. EKG showing normal sinus rhythm with sinus arrhythmia with poor R-wave progression Troponin elevation most likely related to CPR and respiratory failure. Limited Echo EF 60-65%. Hold off on ASA (6) Pneumonia: Code(s): J18.9 - Pneumonia, unspecified organism Status: Acute Assessment and Plan: CT chest showing consolidation bilateral lower lobes. Consider aspiration PNA. Zosyn started. BCx /: NGTD Sputun Cx /: NGTD WBC trending down CXR showing stable mid and lower lung field airspcae opacities L>R. Component of atelectasis Follow (7) Encephalopathy: Code(s): G93.40 - Encephalopathy, unspecified Status: Acute Assessment and Plan: Patient found obtunded in the field. [place] related to unintentional drug overdose. CT head showing no acute intracranial abnormalities. Does have small metallic foreign bodies noted. TSH mildly elevated. Ammonia level negative Continue to re-orient; should continue to improve (8) Electrolyte abnormality: Code(s): E87.8 - Other disorders of electrolyte and fluid balance, not elsewhere classified Status: Acute Assessment and Plan: Patient with metabolic gap acidosis. Probably related to lactic acidosis from being down. lactic acid 3.5 but normal on repeat Metabolic acidosis resolved. (9) Alcohol intoxication: Code(s): F10.929 - Alcohol use, unspecified with intoxication, unspecified Status: Acute Assessment and Plan: Patient with elevated alcohol level on admission. AST at 107 with normal ALT consistent with alcohol use. LFTs o/w normal. Thiamine and folate added. Repeat LFTs normal
[2023-06-29] MEDS: ALBUTEROL SULFATE (*SP) AEROSOL 1 PUFF 2 PUFF INHALATION (20:59)
[2023-06-30] VITALS (21 sets, daily range): BP systolic 137–159; BP diastolic 83–101; PULSE 73–86; RESP 16–34; TEMP 35.6–38; O2SAT 92–99
[2023-06-30] MEDS: ACETAMINOPHEN 325 MG TABLET 650 MG PO (04:51)
[2023-06-30] MEDS: PIPERACILLN/TAZ 3.375GM/NS50ML 3.375 GM/50 ML BAG IVPB (04:51)
[2023-06-30] MEDS: CENTRAL LINE FLUSH 10 ML IV PUSH ×3 (04:52→20:23)
[2023-06-30 05:16] LABS: Hemoglobin 11.8 g/dL (14.0-18.0); Mean Corpuscular HGB Conc 32.8 g/dl (32-36); Mean Corpuscular Hemoglobin 30.8 pg (26-34); Mean Platelet Volume 11.4 fl (7.4-10.4); Platelet Count Result 172 k/mm3 (150-375); Red Blood Count 3.83 M/mm3 (4.6-6.20); White Blood Count 11.4 K/mm3 (4.5-10.0)
[2023-06-30 05:30] LABS: Alanine Aminotransferase 16 U/L (6-50); Albumin Level 3.6 g/dL (3.5-5.1); Alkaline Phosphatase 55 U/L (38-126); Anion Gap 5 mmol/L (8-16); Aspartate Amino Transferase 18 U/L (17-59); Blood Urea Nitrogen 9 mg/dL (9-20); Calcium 8.7 mg/dL (8.4-10.2); Carbon Dioxide 27 mmol/L (22-30); Chloride 104 mmol/L (98-107); Estimated CRCL calculation 112 ml/min; Estimated Glomerular Filt Rate > 60; Glucose 135 mg/dL (65-110); Potassium 3.5 mmol/L (3.4-5.0); Sodium 136 mmol/L (137-145)
--- NOTE | 2023-06-30 08:50 | PM.PNPUL ---
Progress Note: A&P Assessment and Plan (1) Tension pneumothorax: Code(s): J93.0 - Spontaneous tension pneumothorax Status: Acute Assessment and Plan: Patient reports a history of asthma, was found unresponsive and received CPR and subsequently developed a left tension pneumothorax with a probable left 6th rib fracture. Incomplete re-expansion after the 1st chest tube and a 2nd chest tube was placed. There is no thoracic surgery services at our hospital so I was consulted for chest tube management. Currently the patient is in no respiratory distress and he has 2 chest tubes in both at 20 cm water pressure. Chest tube #1 has a brisk air leak and had 200 mL out overnight. Chest tube #2. Has no air leak with 100 mL out overnight. Chest x-ray this morning shows no pneumothorax. Plan: I have placed chest tube #2 on water seal. I will repeat a chest x-ray in the morning. I will consider decreasing the suction on the chest tube #1. At 3:[address] #1 was decreased to 10 cm. 06/30: Patient is in no respiratory distress when his sternal and chest wall pain are controlled. Currently is on 3 L nasal cannula saturation 93%. Chest note tube 1 Is on 10 cm water suction and has 30 mL out in the last 24 hours. There is minimal air leak at end inspiration about every 3rd breath, there is an air leak when he coughs. Chest 2. Has been on water-seal there is no air leak and there was 120 mL out in the last 24 hours. Chest x-ray this morning shows bibasilar infiltrates no left pleural effusion and no pneumothorax. Plan: At 8:00 a.m. chest tube 1 was placed on water seal. Patient still has an intermittent air leak on chest tube 1. Chest tube 2. Has 120 mL out over the last 24 hours will continue both chest tubes today. Will follow with you. Subjective Date/time seen: 06/30/23 08:50 Interval history: 06/29/2023:? This is a new pulmonary consult for chest tube management.? 47-year-old male with a history of asthma on inhalers, drug use was found unresponsive on 06/27/2023.? He was given Narcan and CPR was performed.? He had some improvement with Narcan.? In the emergency room he was in respiratory distress and found to have a left-sided tension pneumothorax.? The 1st chest tube was placed but there was incomplete re-expansion of the lung.? CT scan demonstrated tension pneumothorax with 1 chest tube inserted and a probable nondisplaced anterior lateral fracture of the left 6th rib.? A 2nd chest tube was placed.? The patient had bibasilar infiltrates on his CT scan of the chest and was started on Zosyn empirically for possible aspiration. The patient was extubated on 06/28/2023 at approximately 1:00 p.m. and he scheduled to be transferred out of the ICU.? There is no thoracic surgery at our hospital so I was consulted. I spoke to the gameplay engineer and chest tube 1.? Has had a persistent air leak while he was on the ventilator and at remains with a persistent air leak on 20 cm suction.? Chested 2. has never had an air leak and had 100 mL drainage overnight. 06/29/23: Currently the patient is in no respiratory distress on 5 L nasal cannula saturations 98%.? He says he has no cough but he does have some phlegm production.? He does complain of left-sided chest pain.? White blood cell count is 11.9, decreased from 17.1 yesterday.? Chest x-ray this morning shows 2 left-sided chest tubes, left-sided PICC no pneumothorax, bibasilar infiltrates left greater than right. At 12 noon chest tube 2 placed on water seal. At 3:[address] #1 was decreased to 10 cm. 06/30: Patient is in no respiratory distress when his sternal and chest wall pain are controlled. Currently is on 3 L nasal cannula saturation 93%. Chest note tube 1 Is on 10 cm water suction and has 30 mL out in the last 24 hours. There is minimal air leak at end inspiration about every 3rd breath, there is an air leak when he coughs. Chest 2. Has been on water-seal there is no air leak and there was 1
[2023-06-30] MEDS: HYDROcodone/acetaminophen (*CRX) 5-325 MG TABLET 1 TAB PO (09:23)
[2023-06-30] MEDS: THIAMINE HCL 200 MG/2 ML VIAL 100 MG IV PUSH (09:23)
[2023-06-30] MEDS: FOLIC ACID 1 MG/0.2 ML INJ IV PUSH (09:24)
[2023-06-30] MEDS: amLODIPine BESYLATE 5 MG TABLET PO (09:24)
[2023-06-30] MEDS: PANTOPRAZOLE SODIUM IV 40 MG VIAL IV PUSH (09:24)
--- NOTE | 2023-06-30 09:39 | WPDINTPN ---
Progress Note: A&P Assessment and Plan (1) Hypoxic respiratory failure: Code(s): J96.91 - Respiratory failure, unspecified with hypoxia Status: Acute Assessment and Plan: Acute hypoxic respiratory failure secondary to drug overdose and possible aspiration pneumonia. Left pneumothorax 06/28 extubated after a successful weaning trial and now on nasal cannula. Chest x-ray reviewed switch IVZosyn to p.o. Augmentin Blood and sputum cultures are negative till now Status post chest tube placement. Chest tubes have been put on water seal. Intermittent air leak now. CT chest IMPRESSION: 1. Left tension pneumothorax with chest tube insertion. 2. Diffuse lung disease as described above, consistent with pneumonia and/or aspiration. 3. Probable nondisplaced anterolateral fracture of the left sixth rib. Continue pain control, Continue incentive spirometer pulmonary consulted manage pneumothorax and chest tubes outside ICU (2) Drug overdose: Code(s): T50.901A - Poisoning by unspecified drugs, medicaments and biological substances, accidental (unintentional), initial encounter Status: Acute Assessment and Plan: Patient had elevated alcohol aspiration and also urine drug screen was positive for cocaine and opioids Thiamine and folic acid Continue supportive care and monitor for signs of withdrawal (3) Fracture, ribs: Code(s): S22.49XA - Multiple fractures of ribs, unspecified side, initial encounter for closed fracture Status: Acute Assessment and Plan: Conservative management and pain control (4) Pneumothorax: Code(s): J93.9 - Pneumothorax, unspecified Status: Acute Assessment and Plan: Status post chest tube placement x2 Chest tube is to suction. One still has air leak Chest x-ray shows improvement with resolution of pneumothorax See above (5) Troponin level elevated: Code(s): R79.89 - Other specified abnormal findings of blood chemistry Status: Acute Assessment and Plan: Likely secondary to respiratory failure and cocaine EKG shows normal sinus rhythm Limited echo was done and shows no pericardial effusion and normal LV and RV function (6) Pneumonia: Code(s): J18.9 - Pneumonia, unspecified organism Status: Acute Assessment and Plan: See above (7) Encephalopathy: Code(s): G93.40 - Encephalopathy, unspecified Status: Acute Assessment and Plan: Toxic metabolic encephalopathy secondary to drug abuse and overdose along with alcohol intoxication Head CT reviewed Thiamine and folic acid Normal ammonia and TSH Patient now AO x3 (8) Electrolyte abnormality: Code(s): E87.8 - Other disorders of electrolyte and fluid balance, not elsewhere classified Status: Acute Assessment and Plan: replace low potassium Plan DVT prophylaxis -SCDs Stress ulcer prophylaxis - PPI Nutrition - diet ordered Code Status - Full Code Subjective Date/time seen: 06/30/23 patient seen for the hospitalist group Overnight events reviewed. febrile he was extubated day for yesterday. He is on nasal cannula. He denies any shortness of breath or cough but states that he has pain in his chest at the site of chest tubes and rates it a 6/10. It is worse with deep breathing and coughing. He denies any other complaints off IV fluids with good urine output other Vitals acceptable with blood pressure slightly elevated Review of Systems Review of Systems: All systems reviewed & are unremarkable except as noted in HPI and below ( HPI) Exam Narrative: General: Pt is s alert awake and in no distress Lungs/Chest: Trachea central Coarse BS B/L No wheezing. Crepitus on left chest, [address] 1 has air leak while other only has serosanguineous fluid in it with no air leak, bruising on anterior chest, mild tachypnea with shallow breathing Cardiac: Tachycardia RRR. Normal S1 S2. No murmu
[2023-06-30] MEDS: POTASSIUM CHLORIDE 20 MEQ ER TABLET 40 MEQ PO (11:37)
[2023-06-30] MEDS: AMOXICILLIN/CLAVULANATE K 875-125 MG TAB 1 TABLET PO ×2 (11:37→20:19)
--- NOTE | 2023-06-30 13:00 | PC.NURSE ---
This patient, Nadya Lentz, was received from ICU-12 on 06/30/23 at 1300. Patient/family oriented to unit policies and routines. Report received from Kev UGARTE.
--- NOTE | 2023-06-30 13:03 | PC.NURSE ---
This patient, Nadya Lentz, was transferred to [facility] on 06/30/23 at 1245. Personal belongings sent with patient. Report given to RN. Appropriate documentation sent with patient.
[2023-06-30] MEDS: MINERAL OIL/WHITE PETROLATUM OINTMENT 1 APPLIC EACH EYE (20:19)
[2023-07-01] VITALS (13 sets, daily range): BP systolic 123–149; BP diastolic 76–94; PULSE 71–89; RESP 16–20; TEMP 35.5–36.7; O2SAT 97–99
[2023-07-01] MEDS: CENTRAL LINE FLUSH 10 ML IV PUSH ×3 (05:32→20:44)
[2023-07-01 05:52] LABS: Hematocrit 36.1 % (42.0-52.0); Mean Corpuscular HGB Conc 33.2 g/dl (32-36); Mean Corpuscular Hemoglobin 31.1 pg (26-34); Mean Corpuscular Volume 93.5 fl (80-100); Platelet Count Result 204 k/mm3 (150-375); Red Blood Count 3.86 M/mm3 (4.6-6.20); Red Cell Distribution Width 12.7 % (11.5-14.5); White Blood Count 9.5 K/mm3 (4.5-10.0)
[2023-07-01 06:02] LABS: Alanine Aminotransferase 13 U/L (6-50); Albumin Level 3.7 g/dL (3.5-5.1); Alkaline Phosphatase 54 U/L (38-126); Anion Gap 5 mmol/L (8-16); Aspartate Amino Transferase 17 U/L (17-59); Blood Urea Nitrogen 8 mg/dL (9-20); Calcium 8.9 mg/dL (8.4-10.2); Carbon Dioxide 28 mmol/L (22-30); Chloride 104 mmol/L (98-107); Estimated CRCL calculation 112 ml/min; Estimated Glomerular Filt Rate > 60; Glucose 105 mg/dL (65-110); Magnesium 2.2 mg/dL (1.6-2.3); Potassium 3.7 mmol/L (3.4-5.0); Sodium 137 mmol/L (137-145)
[2023-07-01] MEDS: PANTOPRAZOLE SODIUM IV 40 MG VIAL IV PUSH (08:14)
[2023-07-01] MEDS: AMOXICILLIN/CLAVULANATE K 875-125 MG TAB 1 TABLET PO ×2 (08:15→20:44)
[2023-07-01] MEDS: THIAMINE HCL 100 MG TABLET PO (08:15)
[2023-07-01] MEDS: FOLIC ACID 1 MG TABLET PO (08:15)
[2023-07-01] MEDS: amLODIPine BESYLATE 5 MG TABLET PO (08:15)
[2023-07-01] MEDS: HYDROmorphone HCL INJ (*CRX) 1 MG/ML SYR 0.5 MG IV PUSH (08:19)
--- NOTE | 2023-07-01 09:21 | PM.PNPUL ---
Progress Note: A&P Assessment and Plan (1) Tension pneumothorax: Code(s): J93.0 - Spontaneous tension pneumothorax Status: Acute Assessment and Plan: Patient reports a history of asthma, was found unresponsive and received CPR and subsequently developed a left tension pneumothorax with a probable left 6th rib fracture. Incomplete re-expansion after the 1st chest tube and a 2nd chest tube was placed. There is no thoracic surgery services at our hospital so I was consulted for chest tube management. Currently the patient is in no respiratory distress and he has 2 chest tubes in both at 20 cm water pressure. Chest tube #1 has a brisk air leak and had 200 mL out overnight. Chest tube #2. Has no air leak with 100 mL out overnight. Chest x-ray this morning shows no pneumothorax. Plan: I have placed chest tube #2 on water seal. I will repeat a chest x-ray in the morning. I will consider decreasing the suction on the chest tube #1. At 3:[address] #1 was decreased to 10 cm. 06/30: Patient is in no respiratory distress when his sternal and chest wall pain are controlled. Currently is on 3 L nasal cannula saturation 93%. Chest note tube 1 Is on 10 cm water suction and has 30 mL out in the last 24 hours. There is minimal air leak at end inspiration about every 3rd breath, there is an air leak when he coughs. Chest 2. Has been on water-seal there is no air leak and there was 120 mL out in the last 24 hours. Chest x-ray this morning shows bibasilar infiltrates no left pleural effusion and no pneumothorax. Plan: At 8:00 a.m. chest tube 1 was placed on water seal. Patient still has an intermittent air leak on chest tube 1. Chest tube 2. Has 120 mL out over the last 24 hours will continue both chest tubes today. 07/01: The ICU. States his breathing continues to slowly improve his chest wall pain slowly is improving. He is on 3 L nasal cannula saturation 99%. White blood cell count 9.5. Chest x-ray this morning with no pneumothorax. Chest tube 1. Has no output and no air leak with normal respiration. There is a minimal air leak with coughing. Chest tube 2. Has 50 mL out over the last 18 hours and no air leak. Plan: Chest tube 2 was removed at the bedside. Will leave chest tube 1. In place and check a chest x-ray in the morning. Will follow with you. Subjective Date/time seen: 07/01/23 09:21 Interval history: 06/29/2023:? This is a new pulmonary consult for chest tube management.? 47-year-old male with a history of asthma on inhalers, drug use was found unresponsive on 06/27/2023.? He was given Narcan and CPR was performed.? He had some improvement with Narcan.? In the emergency room he was in respiratory distress and found to have a left-sided tension pneumothorax.? The 1st chest tube was placed but there was incomplete re-expansion of the lung.? CT scan demonstrated tension pneumothorax with 1 chest tube inserted and a probable nondisplaced anterior lateral fracture of the left 6th rib.? A 2nd chest tube was placed.? The patient had bibasilar infiltrates on his CT scan of the chest and was started on Zosyn empirically for possible aspiration. The patient was extubated on 06/28/2023 at approximately 1:00 p.m. and he scheduled to be transferred out of the ICU.? There is no thoracic surgery at our hospital so I was consulted. I spoke to the advanced quality engineer and chest tube 1.? Has had a persistent air leak while he was on the ventilator and at remains with a persistent air leak on 20 cm suction.? Chested 2. has never had an air leak and had 100 mL drainage overnight. 06/29/23: Currently the patient is in no respiratory distress on 5 L nasal cannula saturations 98%.? He says he has no cough but he does have some phlegm production.? He does complain of left-sided chest pain.? White blood cell count is 11.9, decreased from 17.1 yesterday.? Chest x-ray this morning shows 2 left-sided chest tubes, left-sided PICC no pneumothorax, bibasilar
--- NOTE | 2023-07-01 09:24 | PM.OP ---
Procedure Note - Brief Procedure Note - Brief Date of procedure: 07/01/23 Overdose Procedure performed: Removal of left chest tube 2. Surgeon: Donny Loyd MD Description of procedure: Dressing was removed from left chest tube 2., sutures removed and at end expiration chest tube was removed. No complications. Patient saturations remain stable on 3 L nasal cannula throughout the procedure. Urine output (mL): 1,500
--- NOTE | 2023-07-01 12:36 | PM.IMPN ---
Progress Note: A&P Assessment and Plan (1) Hypoxic respiratory failure: Code(s): J96.91 - Respiratory failure, unspecified with hypoxia Status: Acute Assessment and Plan: Acute hypoxic respiratory failure secondary to drug overdose and possible aspiration pneumonia. Left pneumothorax 06/28 extubated after a successful weaning trial and now on nasal cannula. Chest x-ray reviewed switch IVZosyn to p.o. Augmentin Blood and sputum cultures are negative till now Status post chest tube placement. Chest tubes have been put on water seal. Intermittent air leak now. CT chest IMPRESSION: 1. Left tension pneumothorax with chest tube insertion. 2. Diffuse lung disease as described above, consistent with pneumonia and/or aspiration. 3. Probable nondisplaced anterolateral fracture of the left sixth rib. Continue pain control, Continue incentive spirometer pulmonary consulted manage pneumothorax and chest tubes outside ICU 07/01/23: Pt remains stable on 3L NC at this time. CXR today showing no pneumothorax. There are patchy bibasilar and perihilar airspace disease opacities that correlate for atelectasis and pulmonary edema vs. PNA with a probable minimal pleural effusion. (2) Drug overdose: Code(s): T50.901A - Poisoning by unspecified drugs, medicaments and biological substances, accidental (unintentional), initial encounter Status: Acute Assessment and Plan: Patient had elevated alcohol aspiration and also urine drug screen was positive for cocaine and opioids Thiamine and folic acid Continue supportive care and monitor for signs of withdrawal 07/01/23: No current s/s of withdrawl. Pt's VSS. Continue CIWA protocol. (3) Fracture, ribs: Code(s): S22.49XA - Multiple fractures of ribs, unspecified side, initial encounter for closed fracture Status: Acute Assessment and Plan: Conservative management and pain control 07/01/23: Continue prn pain control as needed. IS encouraged (4) Pneumothorax: Code(s): J93.9 - Pneumothorax, unspecified Status: Acute Assessment and Plan: Status post chest tube placement x2 Chest tube is to suction. One still has air leak Chest x-ray shows improvement with resolution of pneumothorax See above 07/01/23: I spoke with Dr. Kevin today and he removed Chest Tube #2 at the bedside. With regards to Chest Tube #1, he advised that there is still a leak and if there tomorrow we may have to consider transfer to facility with Cardiothoracic surgery to rule out laceration vs. Fistula development. CXR today does show that Pneumothorax has resolved, but leak remains. IS was encouraged. (5) Troponin level elevated: Code(s): R79.89 - Other specified abnormal findings of blood chemistry Status: Acute Assessment and Plan: Likely secondary to respiratory failure and cocaine EKG shows normal sinus rhythm Limited echo was done and shows no pericardial effusion and normal LV and RV function (6) Pneumonia: Code(s): J18.9 - Pneumonia, unspecified organism Status: Acute Assessment and Plan: 07/01/2023: Continue Augmentin 875 mg po BID. (7) Encephalopathy: Code(s): G93.40 - Encephalopathy, unspecified Status: Resolved Assessment and Plan: Toxic metabolic encephalopathy secondary to drug abuse and overdose along with alcohol intoxication Head CT reviewed Thiamine and folic acid Normal ammonia and TSH Patient now AO x3 07/01/23: Resolved (8) Electrolyte abnormality: Code(s): E87.8 - Other disorders of electrolyte and fluid balance, not elsewhere classified Status: Acute Assessment and Plan: replace low potassium 07/01/23: Electrolytes are in balance without any acute deficits. Plan DVT prophylaxis -SCDs Stress ulcer prophylaxis - PPI Nutrition - diet ordered Code Status - Full Code Time Spent With Patient Time with patient: 15 - 25 minutes Subjective Date/ti
[2023-07-01] MEDS: HYDROcodone/acetaminophen (*CRX) 5-325 MG TABLET 1 TAB PO (20:46)
[2023-07-02] VITALS (13 sets, daily range): BP systolic 107–125; BP diastolic 69–96; PULSE 70–86; RESP 16–20; TEMP 35.9–37.2; O2SAT 92–100
[2023-07-02 05:25] LABS: Hematocrit 36.8 % (42.0-52.0); Hemoglobin 11.9 g/dL (14.0-18.0); Mean Corpuscular HGB Conc 32.3 g/dl (32-36); Mean Corpuscular Hemoglobin 30.1 pg (26-34); Mean Corpuscular Volume 93.2 fl (80-100); Mean Platelet Volume 10.6 fl (7.4-10.4); Platelet Count Result 236 k/mm3 (150-375); Red Blood Count 3.95 M/mm3 (4.6-6.20); Red Cell Distribution Width 12.8 % (11.5-14.5); White Blood Count 8.7 K/mm3 (4.5-10.0)
[2023-07-02 05:41] LABS: Alanine Aminotransferase 15 U/L (6-50); Albumin Level 3.7 g/dL (3.5-5.1); Alkaline Phosphatase 56 U/L (38-126); Anion Gap 5 mmol/L (8-16); Aspartate Amino Transferase 23 U/L (17-59); Bilirubin,Total 0.6 mg/dL (0.2-1.3); Blood Urea Nitrogen 13 mg/dL (9-20); Calcium 9.5 mg/dL (8.4-10.2); Carbon Dioxide 27 mmol/L (22-30); Chloride 104 mmol/L (98-107); Estimated CRCL calculation 112 ml/min; Estimated Glomerular Filt Rate > 60; Glucose 106 mg/dL (65-110); Magnesium 2.2 mg/dL (1.6-2.3); Potassium 4.1 mmol/L (3.4-5.0); Sodium 136 mmol/L (137-145)
[2023-07-02] MEDS: FOLIC ACID 1 MG TABLET PO (07:55)
[2023-07-02] MEDS: THIAMINE HCL 100 MG TABLET PO (07:55)
[2023-07-02] MEDS: AMOXICILLIN/CLAVULANATE K 875-125 MG TAB 1 TABLET PO ×2 (07:55→21:19)
[2023-07-02] MEDS: HYDROmorphone HCL INJ (*CRX) 1 MG/ML SYR 0.5 MG IV PUSH (07:55)
[2023-07-02] MEDS: amLODIPine BESYLATE 5 MG TABLET PO (07:55)
[2023-07-02] MEDS: MINERAL OIL/WHITE PETROLATUM OINTMENT 1 APPLIC EACH EYE (07:58)
[2023-07-02] MEDS: PANTOPRAZOLE SODIUM IV 40 MG VIAL IV PUSH (08:01)
--- NOTE | 2023-07-02 08:54 | P.PNIM_ITS ---
Progress Note: A&P Assessment and Plan (1) Hypoxic respiratory failure: Code(s): J96.91 - Respiratory failure, unspecified with hypoxia Status: Acute Assessment and Plan: 07/01/23: * Pt remains stable on 3L NC at this time. CXR today showing no pneumothorax. There are patchy bibasilar and perihilar airspace disease opacities that correlate for atelectasis and pulmonary edema vs. PNA with a probable minimal pleural effusion. 07/02/23: * Patient currently on 3L NC * Continue to wean O2 to keep sat greater than 92% * Continue IS 10 x/hr * Pulmonology following (2) Drug overdose: Code(s): T50.901A - Poisoning by unspecified drugs, medicaments and biological substances, accidental (unintentional), initial encounter Status: Acute Assessment and Plan: 07/01/23: * No current s/s of withdrawl. Pt's VSS. Continue CIWA protocol. 07/02/23: * UDS positive for cocaine and opiates on admission * Alcohol level 220 on admission * Patient placed on CIWA protocol * No signs/symptoms of withdrawal seen. (3) Fracture, ribs: Code(s): S22.49XA - Multiple fractures of ribs, unspecified side, initial encounter for closed fracture Status: Acute Assessment and Plan: 07/01/23: * Continue prn pain control as needed. IS encouraged 07/02/23: * Continue IS * Continue with pain control (4) Pneumothorax: Code(s): J93.9 - Pneumothorax, unspecified Status: Acute Assessment and Plan: 07/01/23: * I spoke with Dr. Kevin today and he removed Chest Tube #2 at the bedside. With regards to Chest Tube #1, he advised that there is still a leak and if there tomorrow we may have to consider transfer to facility with Cardiothoracic surgery to rule out laceration vs. Fistula development. CXR today does show that Pneumothorax has resolved, but leak remains. IS was encouraged. 07/02/23: * Pulmonology following. * Chest x-ray today on not showing any pneumothorax, patchy bibasilar and left perihilar airspace disease * Chest tube #1 discontinued pulmonology today. * Patient currently remains on 3 L nasal cannula, he does not appear to be in any acute distress * Plan for an x-ray in 2 hours to reassess (5) Pneumonia: Code(s): J18.9 - Pneumonia, unspecified organism Status: Acute Assessment and Plan: 07/01/2023: Continue Augmentin 875 mg po BID. 07/02/23: * Likely due to aspiration as patient was found unresponsive by police * Initial chest x-ray showing pneumonia * Patient started on Zosyn and then transitioned to Augmentin oral on 06/30/23 * Sputum culture was negative for bacteria * Blood cultures are showing no growth on preliminary read. (6) Troponin level elevated: Code(s): R79.89 - Other specified abnormal findings of blood chemistry Status: Acute Assessment and Plan: 07/02/23: * Likely secondary to respiratory failure and cocaine * EKG shows normal sinus rhythm * initial Troponin 0.120<2.110 on 06/27/23 * Echo showing normal RV and LV function with EF of 60-65%, no pericardial effusion, no endocarditis noted. (7) Electrolyte abnormality: Code(s): E87.8 - Other disorders of electrolyte and fluid balance, not elsewhere classified Status: Acute Assessment and Plan: 07/01/23: * Electrolytes are in balance without any acute deficits. 07/02/23: * Potassium 3.4, no replacement needed. Na+ 138 * Continue to trend labs. Time Spent With Patient Time with patient: Greater than 35 minutes
--- NOTE | 2023-07-02 08:54 | PM.IMPN ---
Progress Note: A&P Assessment and Plan (1) Hypoxic respiratory failure: Code(s): J96.91 - Respiratory failure, unspecified with hypoxia Status: Acute Assessment and Plan: 07/01/23: Pt remains stable on 3L NC at this time. CXR today showing no pneumothorax. There are patchy bibasilar and perihilar airspace disease opacities that correlate for atelectasis and pulmonary edema vs. PNA with a probable minimal pleural effusion. 07/02/23: Patient currently on 3L NC Continue to wean O2 to keep sat greater than 92% Continue IS 10 x/hr Pulmonology following (2) Drug overdose: Code(s): T50.901A - Poisoning by unspecified drugs, medicaments and biological substances, accidental (unintentional), initial encounter Status: Acute Assessment and Plan: 07/01/23: No current s/s of withdrawl. Pt's VSS. Continue CIWA protocol. 07/02/23: UDS positive for cocaine and opiates on admission Alcohol level 220 on admission Patient placed on CIWA protocol No signs/symptoms of withdrawal seen. (3) Fracture, ribs: Code(s): S22.49XA - Multiple fractures of ribs, unspecified side, initial encounter for closed fracture Status: Acute Assessment and Plan: 07/01/23: Continue prn pain control as needed. IS encouraged 07/02/23: Continue IS Continue with pain control (4) Pneumothorax: Code(s): J93.9 - Pneumothorax, unspecified Status: Acute Assessment and Plan: 07/01/23: I spoke with Dr. Kevin today and he removed Chest Tube #2 at the bedside. With regards to Chest Tube #1, he advised that there is still a leak and if there tomorrow we may have to consider transfer to facility with Cardiothoracic surgery to rule out laceration vs. Fistula development. CXR today does show that Pneumothorax has resolved, but leak remains. IS was encouraged. 07/02/23: Pulmonology following. Chest x-ray today on not showing any pneumothorax, patchy bibasilar and left perihilar airspace disease Chest tube #1 discontinued pulmonology today. Patient currently remains on 3 L nasal cannula, he does not appear to be in any acute distress Plan for an x-ray in 2 hours to reassess (5) Pneumonia: Code(s): J18.9 - Pneumonia, unspecified organism Status: Acute Assessment and Plan: 07/01/2023: Continue Augmentin 875 mg po BID. 07/02/23: Likely due to aspiration as patient was found unresponsive by police Initial chest x-ray showing pneumonia Patient started on Zosyn and then transitioned to Augmentin oral on 06/30/23 Sputum culture was negative for bacteria Blood cultures are showing no growth on preliminary read. (6) Troponin level elevated: Code(s): R79.89 - Other specified abnormal findings of blood chemistry Status: Acute Assessment and Plan: 07/02/23: Likely secondary to respiratory failure and cocaine EKG shows normal sinus rhythm initial Troponin 0.120<2.110 on 06/27/23 Echo showing normal RV and LV function with EF of 60-65%, no pericardial effusion, no endocarditis noted. (7) Electrolyte abnormality: Code(s): E87.8 - Other disorders of electrolyte and fluid balance, not elsewhere classified Status: Acute Assessment and Plan: 07/01/23: Electrolytes are in balance without any acute deficits. 07/02/23: Potassium 3.4, no replacement needed. Na+ 138 Continue to trend labs. Time Spent With Patient Time with patient: Greater than 35 minutes Subjective Date/time seen: 07/02/23 08:55 Interval history: Patient is a 47 year old male who was brought to the hospital via EMS after police found him unresponsive on 06/27/23. Patient was given 1mg Narcan intranasally by police and then patient received 2mg IV narcan. CPR was given in the field. On arrival to the hospital patient had pinpoint pupils, agonal breathing, and GCS was 7 on a non-rebreather mask. Patient woke up briefly in the ER stating he had chest
--- NOTE | 2023-07-02 10:02 | PM.PNPUL ---
Progress Note: A&P Assessment and Plan (1) Tension pneumothorax: Code(s): J93.0 - Spontaneous tension pneumothorax Status: Acute Assessment and Plan: Patient reports a history of asthma, was found unresponsive and received CPR and subsequently developed a left tension pneumothorax with a probable left 6th rib fracture. Incomplete re-expansion after the 1st chest tube and a 2nd chest tube was placed. There is no thoracic surgery services at our hospital so I was consulted for chest tube management. Currently the patient is in no respiratory distress and he has 2 chest tubes in both at 20 cm water pressure. Chest tube #1 has a brisk air leak and had 200 mL out overnight. Chest tube #2. Has no air leak with 100 mL out overnight. Chest x-ray this morning shows no pneumothorax. Plan: I have placed chest tube #2 on water seal. I will repeat a chest x-ray in the morning. I will consider decreasing the suction on the chest tube #1. At 3:[address] #1 was decreased to 10 cm. 06/30: Patient is in no respiratory distress when his sternal and chest wall pain are controlled. Currently is on 3 L nasal cannula saturation 93%. Chest note tube 1 Is on 10 cm water suction and has 30 mL out in the last 24 hours. There is minimal air leak at end inspiration about every 3rd breath, there is an air leak when he coughs. Chest 2. Has been on water-seal there is no air leak and there was 120 mL out in the last 24 hours. Chest x-ray this morning shows bibasilar infiltrates no left pleural effusion and no pneumothorax. Plan: At 8:00 a.m. chest tube 1 was placed on water seal. Patient still has an intermittent air leak on chest tube 1. Chest tube 2. Has 120 mL out over the last 24 hours will continue both chest tubes today. 07/01: The ICU. States his breathing continues to slowly improve his chest wall pain slowly is improving. He is on 3 L nasal cannula saturation 99%. White blood cell count 9.5. Chest x-ray this morning with no pneumothorax. Chest tube 1. Has no output and no air leak with normal respiration. There is a minimal air leak with coughing. Chest tube 2. Has 50 mL out over the last 18 hours and no air leak. Plan: Chest tube 2 was removed at the bedside. Will leave chest tube 1. In place and check a chest x-ray in the morning. 07/02: Patient is stable in no respiratory distress. He is on 3 L nasal cannula saturations 100%. White blood cell count 8.7. Creatinine 0.8. Chest x-ray shows no pneumothorax and no left pleural effusion. Chest tube 1. Has no output. There is no air leak. Plan: Will discontinue CT 1 at the bedside. Repeat chest x-ray in 2 hours. Subjective Date/time seen: 07/02/23 10:02 Interval history: 06/29/2023:? This is a new pulmonary consult for chest tube management.? 47-year-old male with a history of asthma on inhalers, drug use was found unresponsive on 06/27/2023.? He was given Narcan and CPR was performed.? He had some improvement with Narcan.? In the emergency room he was in respiratory distress and found to have a left-sided tension pneumothorax.? The 1st chest tube was placed but there was incomplete re-expansion of the lung.? CT scan demonstrated tension pneumothorax with 1 chest tube inserted and a probable nondisplaced anterior lateral fracture of the left 6th rib.? A 2nd chest tube was placed.? The patient had bibasilar infiltrates on his CT scan of the chest and was started on Zosyn empirically for possible aspiration. The patient was extubated on 06/28/2023 at approximately 1:00 p.m. and he scheduled to be transferred out of the ICU.? There is no thoracic surgery at our hospital so I was consulted. I spoke to the contract project manager and chest tube 1.? Has had a persistent air leak while he was on the ventilator and at remains with a persistent air leak on 20 cm suction.? Chested 2. has never had an air leak and had 100 mL drainage overnight. 06/29/23: Currently the patient is in no respira
--- NOTE | 2023-07-02 10:05 | PM.OP ---
Procedure Note - Brief Procedure Note - Brief Date of procedure: 07/02/23 Overdose Procedure performed: Removal of left chest tube. Surgeon: Donny Loyd MD Description of procedure: Dressing was removed from left chest tube 1., sutures removed and at end expiration chest tube was removed.? No complications.? Patient saturations remain stable on 3 L nasal cannula throughout the procedure. Urine output (mL): 1,500
--- NOTE | 2023-07-02 13:53 | PC.NURSE ---
Pt called because his dressing covering the site where the chest tubes had been was exposed and falling off. Pt admitted that he has been up walking around but thought it was ok since he admitted it to the doctor. I also witnessed pt picking at the dressing multiple times including after I told him to stop touching it. I had to block pt's hand to make him stop picking and tugging on the dressing. I changed the dressing using different bandages in an effort to make them stick to pt's skin better.
[2023-07-02] MEDS: CENTRAL LINE FLUSH 10 ML IV PUSH ×2 (14:56→21:19)
[2023-07-03] VITALS (9 sets, daily range): BP systolic 112–123; BP diastolic 76–86; PULSE 72–83; RESP 14–20; TEMP 36.5–36.8; O2SAT 94–95
[2023-07-03] MEDS: CENTRAL LINE FLUSH 10 ML IV PUSH ×3 (05:37→20:25)
[2023-07-03] MEDS: HYDROmorphone HCL INJ (*CRX) 1 MG/ML SYR 0.5 MG IV PUSH ×3 (06:31→20:26)
--- NOTE | 2023-07-03 09:23 | P.PNIM_ITS ---
Progress Note: A&P Assessment and Plan (1) Hypoxic respiratory failure: Code(s): J96.91 - Respiratory failure, unspecified with hypoxia Status: Acute Assessment and Plan: 07/01/23: * Pt remains stable on 3L NC at this time. CXR today showing no pneumothorax. There are patchy bibasilar and perihilar airspace disease opacities that correlate for atelectasis and pulmonary edema vs. PNA with a probable minimal pleural effusion. 07/02/23: * Patient currently on 3L NC * Continue to wean O2 to keep sat greater than 92% * Continue IS 10 x/hr * Pulmonology following 07/03/23: * Patient currently on 2L NC * Continue to wean O2 to keep saturation greater than 92% * Continue IS 10x/hr * Ambulate in the halls * OOB to chair * Pulmonary following. * CXR- showing no change to left apical pneumothorax. * Will repeat chest x-ray tomorrow. (2) Drug overdose: Code(s): T50.901A - Poisoning by unspecified drugs, medicaments and biological substances, accidental (unintentional), initial encounter Status: Acute Assessment and Plan: 07/01/23: * No current s/s of withdrawl. Pt's VSS. Continue CIWA protocol. 07/02/23: * UDS positive for cocaine and opiates on admission * Alcohol level 220 on admission * Patient placed on CIWA protocol * No signs/symptoms of withdrawal seen. 07/03/23: * no change to current treatment plan (3) Fracture, ribs: Code(s): S22.49XA - Multiple fractures of ribs, unspecified side, initial encounter for closed fracture Status: Acute Assessment and Plan: 07/01/23: * Continue prn pain control as needed. IS encouraged 07/02/23: * Continue IS * Continue with pain control 07/03/23: * no change to current treatment plan (4) Pneumothorax: Code(s): J93.9 - Pneumothorax, unspecified Status: Acute Assessment and Plan: 07/01/23: * I spoke with Dr. Kevin today and he removed Chest Tube #2 at the bedside. With regards to Chest Tube #1, he advised that there is still a leak and if there tomorrow we may have to consider transfer to facility with Cardiothoracic surgery to rule out laceration vs. Fistula development. CXR today does show that Pneumothorax has resolved, but leak remains. IS was encouraged. 07/02/23: * Pulmonology following. * Chest x-ray today on not showing any pneumothorax, patchy bibasilar and left perihilar airspace disease * Chest tube #1 discontinued pulmonology today. * Patient currently remains on 3 L nasal cannula, he does not appear to be in any acute distress * Plan for an x-ray in 2 hours to reassess 07/03/23: * Chest x-ray today showing no change to small left apical pneumothorax * Continue to wean O2 as noted above * Will repeat chest x-ray tomorrow (5) Pneumonia: Code(s): J18.9 - Pneumonia, unspecified organism Status: Acute Assessment and Plan: 07/01/2023: Continue Augmentin 875 mg po BID. 07/02/23: * Likely due to aspiration as patient was found unresponsive by police * Initial chest x-ray showing pneumonia * Patient started on Zosyn and then transitioned to Augmentin oral on 06/30/23 * Sputum culture was negative for bacteria * Blood cultures are showing no growth on preliminary read. 07/03/23: * Blood and sputum cultures negative on the final read * no change to current treatment plan (6) Troponin level elevated: Code(s): R79.89 - Other specified abnormal findings of blood chemistry Status: Acute Assessment and Plan:
--- NOTE | 2023-07-03 09:23 | PM.IMPN ---
Progress Note: A&P Assessment and Plan (1) Hypoxic respiratory failure: Code(s): J96.91 - Respiratory failure, unspecified with hypoxia Status: Acute Assessment and Plan: 07/01/23: Pt remains stable on 3L NC at this time. CXR today showing no pneumothorax. There are patchy bibasilar and perihilar airspace disease opacities that correlate for atelectasis and pulmonary edema vs. PNA with a probable minimal pleural effusion. 07/02/23: Patient currently on 3L NC Continue to wean O2 to keep sat greater than 92% Continue IS 10 x/hr Pulmonology following 07/03/23: Patient currently on 2L NC Continue to wean O2 to keep saturation greater than 92% Continue IS 10x/hr Ambulate in the halls OOB to chair Pulmonary following. CXR- showing no change to left apical pneumothorax. Will repeat chest x-ray tomorrow. (2) Drug overdose: Code(s): T50.901A - Poisoning by unspecified drugs, medicaments and biological substances, accidental (unintentional), initial encounter Status: Acute Assessment and Plan: 07/01/23: No current s/s of withdrawl. Pt's VSS. Continue CIWA protocol. 07/02/23: UDS positive for cocaine and opiates on admission Alcohol level 220 on admission Patient placed on CIWA protocol No signs/symptoms of withdrawal seen. 07/03/23: no change to current treatment plan (3) Fracture, ribs: Code(s): S22.49XA - Multiple fractures of ribs, unspecified side, initial encounter for closed fracture Status: Acute Assessment and Plan: 07/01/23: Continue prn pain control as needed. IS encouraged 07/02/23: Continue IS Continue with pain control 07/03/23: no change to current treatment plan (4) Pneumothorax: Code(s): J93.9 - Pneumothorax, unspecified Status: Acute Assessment and Plan: 07/01/23: I spoke with Dr. Kevin today and he removed Chest Tube #2 at the bedside. With regards to Chest Tube #1, he advised that there is still a leak and if there tomorrow we may have to consider transfer to facility with Cardiothoracic surgery to rule out laceration vs. Fistula development. CXR today does show that Pneumothorax has resolved, but leak remains. IS was encouraged. 07/02/23: Pulmonology following. Chest x-ray today on not showing any pneumothorax, patchy bibasilar and left perihilar airspace disease Chest tube #1 discontinued pulmonology today. Patient currently remains on 3 L nasal cannula, he does not appear to be in any acute distress Plan for an x-ray in 2 hours to reassess 07/03/23: Chest x-ray today showing no change to small left apical pneumothorax Continue to wean O2 as noted above Will repeat chest x-ray tomorrow (5) Pneumonia: Code(s): J18.9 - Pneumonia, unspecified organism Status: Acute Assessment and Plan: 07/01/2023: Continue Augmentin 875 mg po BID. 07/02/23: Likely due to aspiration as patient was found unresponsive by police Initial chest x-ray showing pneumonia Patient started on Zosyn and then transitioned to Augmentin oral on 06/30/23 Sputum culture was negative for bacteria Blood cultures are showing no growth on preliminary read. 07/03/23: Blood and sputum cultures negative on the final read no change to current treatment plan (6) Troponin level elevated: Code(s): R79.89 - Other specified abnormal findings of blood chemistry Status: Acute Assessment and Plan: 07/02/23: Likely secondary to respiratory failure and cocaine EKG shows normal sinus rhythm initial Troponin 0.120<2.110 on 06/27/23 Echo showing normal RV and LV function with EF of 60-65%, no pericardial effusion, no endocarditis noted. 07/03/23: continue to monitor symptoms (7) Electrolyte abnormality: Code(s): E87.8 - Other disorders of electrolyte and fluid balance, not elsewhere classified Status: Acute Assessment and Plan: 07/01/23: Electrolyte
[2023-07-03] MEDS: AMOXICILLIN/CLAVULANATE K 875-125 MG TAB 1 TABLET PO ×2 (09:43→20:26)
[2023-07-03] MEDS: HYDROcodone/acetaminophen (*CRX) 5-325 MG TABLET 1 TAB PO ×2 (09:43→17:46)
[2023-07-03] MEDS: FOLIC ACID 1 MG TABLET PO (09:43)
[2023-07-03] MEDS: PANTOPRAZOLE SODIUM IV 40 MG VIAL IV PUSH (09:43)
[2023-07-03] MEDS: THIAMINE HCL 100 MG TABLET PO (09:43)
[2023-07-03] MEDS: amLODIPine BESYLATE 5 MG TABLET PO (09:44)
[2023-07-03] MEDS: CENTRAL LINE FLUSH 20 ML IV PUSH ×2 (13:09→17:48)
--- NOTE | 2023-07-03 14:16 | PM.PNPUL ---
Progress Note: A&P Assessment and Plan (1) Tension pneumothorax: Code(s): J93.0 - Spontaneous tension pneumothorax Status: Acute Assessment and Plan: 06/29: Patient reports a history of asthma, was found unresponsive and received CPR and subsequently developed a left tension pneumothorax with a probable left 6th rib fracture. Incomplete re-expansion after the 1st chest tube and a 2nd chest tube was placed. There is no thoracic surgery services at our hospital; Dr Loyd was consulted for chest tube management. Currently the patient is in no respiratory distress; he has 2 chest tubes in both at 20 cm water pressure. Chest tube #1 has a brisk air leak and had 200 mL out overnight. Chest tube #2. Has no air leak with 100 mL out overnight. Chest x-ray this morning shows no pneumothorax. Plan: I have placed chest tube #2 on water seal. I will repeat a chest x-ray in the morning. I will consider decreasing the suction on the chest tube #1. At 3:[address] #1 was decreased to 10 cm. 06/30: Patient is in no respiratory distress when his sternal and chest wall pain are controlled. Currently is on 3 L nasal cannula saturation 93%. Chest note tube 1 Is on 10 cm water suction and has 30 mL out in the last 24 hours. There is minimal air leak at end inspiration about every 3rd breath, there is an air leak when he coughs. Chest 2. Has been on water-seal there is no air leak and there was 120 mL out in the last 24 hours. Chest x-ray this morning shows bibasilar infiltrates no left pleural effusion and no pneumothorax. Plan: At 8:00 a.m. chest tube 1 was placed on water seal. Patient still has an intermittent air leak on chest tube 1. Chest tube 2. Has 120 mL out over the last 24 hours will continue both chest tubes today. 07/01: The ICU. States his breathing continues to slowly improve his chest wall pain slowly is improving. He is on 3 L nasal cannula saturation 99%. White blood cell count 9.5. Chest x-ray this morning with no pneumothorax. Chest tube 1. Has no output and no air leak with normal respiration. There is a minimal air leak with coughing. Chest tube 2. Has 50 mL out over the last 18 hours and no air leak. Plan: Chest tube 2 was removed at the bedside. Will leave chest tube 1. In place and check a chest x-ray in the morning. 07/02: Patient is stable in no respiratory distress. He is on 3 L nasal cannula saturations 100%. White blood cell count 8.7. Creatinine 0.8. Chest x-ray shows no pneumothorax and no left pleural effusion. Chest tube 1. Has no output. There is no air leak. 07/03: He had his chest tube removed yesterday, is stbale with small left apical hydropneumothorax. His parenchyma shows slight increase in markings either pulmonary edema or infiltrate. His ApneaLink last night on 2 L showed lowest saturation 92% and no apneas. We will repeat ApneaLink on room air to night July 03. Expect discharge in the next few days. Subjective Date/time seen: 07/03/23 14:16 Interval history: 06/29/2023:? This is a new pulmonary consult for chest tube management.? 47-year-old male with a history of asthma on inhalers, drug use was found unresponsive on 06/27/2023.? He was given Narcan and CPR was performed.? He had some improvement with Narcan.? In the emergency room he was in respiratory distress and found to have a left-sided tension pneumothorax.? The 1st chest tube was placed but there was incomplete re-expansion of the lung.? CT scan demonstrated tension pneumothorax with 1 chest tube inserted and a probable nondisplaced anterior lateral fracture of the left 6th rib.? A 2nd chest tube was placed.? The patient had bibasilar infiltrates on his CT scan of the chest and was started on Zosyn empirically for possible aspiration. The patient was extubated on 06/28/2023 at approximately 1:00 p.m. and he scheduled to be transferred out of the ICU.? There is no thoracic surgery at our hospital so I was consult
[2023-07-03] MEDS: MINERAL OIL/WHITE PETROLATUM OINTMENT 1 APPLIC EACH EYE (20:27)
[2023-07-03] MEDS: MELATONIN 5 MG TABLET PO (20:57)
[2023-07-04] VITALS (8 sets, daily range): BP systolic 117–135; BP diastolic 74–80; PULSE 66–86; RESP 20; TEMP 36.2–37.1; O2SAT 94–96
[2023-07-04] MEDS: HYDROcodone/acetaminophen (*CRX) 5-325 MG TABLET 1 TAB PO ×3 (06:51→18:20)
[2023-07-04] MEDS: CENTRAL LINE FLUSH 10 ML IV PUSH ×2 (06:52→14:34)
[2023-07-04] MEDS: AMOXICILLIN/CLAVULANATE K 875-125 MG TAB 1 TABLET PO (10:02)
[2023-07-04] MEDS: amLODIPine BESYLATE 5 MG TABLET PO (10:02)
[2023-07-04] MEDS: FOLIC ACID 1 MG TABLET PO (10:02)
[2023-07-04] MEDS: THIAMINE HCL 100 MG TABLET PO (10:03)
[2023-07-04] MEDS: CENTRAL LINE FLUSH 20 ML IV PUSH (10:03)
[2023-07-04] MEDS: PANTOPRAZOLE SODIUM IV 40 MG VIAL IV PUSH (10:07)
[2023-07-04] MEDS: ACETAMINOPHEN 325 MG TABLET 650 MG PO (10:07)
--- NOTE | 2023-07-04 19:46 | PM.DS ---
DS: Admitting Diagnosis Discharge Date 07/04/23 Admitting Diagnosis Acute respiratory failure with hypoxia Tension pneumothorax elevated troponin level fractured ribs Drug overdose Alcohol intoxication pneumonia acute encephalopathy DS: Summary Hospital Course Reason for hospitalization: Acute respiratory failure with hypoxia tension pneumothorax rib fractures pneumonia Drug overdose alcohol intoxication acute encephalopathy Hospital Course: Patient is a 47 year old male who was brought to the hospital via EMS after police found him unresponsive on 06/27/23. Patient was given 1mg Narcan intranasally by police and then patient received 2mg IV narcan. CPR was given in the field. On arrival to the hospital patient had pinpoint pupils, agonal breathing, and GCS was 7 on a non-rebreather mask. Patient woke up briefly in the ER stating he had chest pain and could not breath.? Patient was intubated for respiratory failure and airway protection. Post intubation chest x-ray shown a left tension pneumothorax and a chest tube was placed, there was also multiple fractured ribs seen. UA shown 2+ protein, trace ketones, 2+ blood, 21-50 urine RBC's. Hepatitis panel was negative.? Urine drug screen was positive for opioids and cocaine. Alcohol level was 220 on admission.? He was initially admitted to ICU. Work up included a CT of the chest which still shown a tension pneumothorax and right shift with some debris noted in the chest tube. A second chest tube was placed. Head CT was negative for any acute intracranial abnormality, metallic foreign bodies including one in the right orbit was seen.? On repeat x-ray patient was showing improvement in his left pneumothorax post 2nd chest tube placement and also shown stable diffuse lung disease of the left lung and worsening airspace opacities of the right lung consistent with pneumonia. Blood and sputum cultures were obtained and patient was started on Zosyn. Echo was completed and shown normal left ventricular function with an EF of 60-65%, right ventricular systolic function is normal, no pericardial effusion, or endocarditis noted. Patient was extubated on 06/28/23. He was placed on CIWA protocol. Pulmonology was consulted for chest tube management. Chest tube #2 was removed on 07/01/23. Chest tube #1removed on the . CXR still showing a small pneumothorax post removal. Patient had 2 more chest x-rays showing that it has remained stable. On examination today patient alert and oriented x3, lying in the bed. He still reports rib pain of 7/10. He is well managed with [place]. He is currently on room air, VSS, he is afebrile. Labs today were essentially unremarkable. Patient is stable for discharge. He was given a script for [place] and Augmentin. He will need to follow up with PCP in 1 week. He will also need to follow up with pulmonology in 1 week along with getting a repeat chest x-ray in 1 week. 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 Status at Discharge Cognitive/behavioral status at discharge: Alert and oriented x3 Functional status at discharge: independent ambulation Overall status at discharge: patient is progressing back to baseline Time Spent with Patient Time attestation: Total time spent providing and/or coordinating discharge services: Time spent: Greater than 30 minutes Exam Narrative: General: In no acute distress, well nourished Head: atraumatic, no encephalopathy Eyes: EOMI, PERRLA, sclera clear ENT: moist mucous membranes, nasal passages clear Neck: supple, no JVD, no adenopathy, trachea midline Cardiac: Normal S1 and S2. No murmur, gallops or friction rubs, peripheral pulses intact. Respiratory: Lungs clear to auscultation, diminished in bases, no adventitious lung sounds, he is in no acute respiratory distress at this time, currently on room air Gastrointestinal: soft, non-distended, non-tender, normoactive bowel sounds. :voiding without dif
== END 2023-07-04 19:30 | disposition home or self-care (01) | DRG 816 ==
LOC: ANHED 05:11 → ANHIMU 06:01 → ANHICU 08:07 → ANH3MEDSUR 06-30 12:54
PROVIDERS: Internal Medicine; Admitting Provider Internal Medicine; Emergency Provider Emergency Medicine; Visit Provider Nurse Practitioner Acute Care
DX: T40.5X1A Poisoning by cocaine, accidental (unintentional), initial encounter (principal); T40.2X1A Poisoning by other opioids, accidental (unintentional), initial encounter; T50.901A Poisoning by unspecified drugs, medicaments and biological substances, accidental (unintentional), initial encounter; J96.01 Acute respiratory failure with hypoxia; J69.0 Pneumonitis due to inhalation of food and vomit; J93.0 Spontaneous tension pneumothorax; J93.9 Pneumothorax, unspecified; M96.A2 Fracture of one rib associated with chest compression and cardiopulmonary resuscitation; G92.8 Other toxic encephalopathy; R79.89 Other specified abnormal findings of blood chemistry; F14.129 Cocaine abuse with intoxication, unspecified; F11.129 Opioid abuse with intoxication, unspecified
CPT/HCPCS: 31500; 32551; 36415; 36569; 36600; 70450; 71045; 71046; 71250; 80053; 80074; 80307; 81001; 82140; 82375; 82805; 83050; 83605; 83735; 84443; 84478; 84484; 85025; 85027; 85055; 86703; 86850; 86900; 86901; 87040; 87070; 87205; 90471; 90714; 93005; 93308; 94002; 94003; 94640; 94762; 96365; 96366; 96375; 96376; 99291; A9270; C1729; C1751; C9113; G0432; J0690; J1170; J2060; J2250; J2310; J2405; J2543; J2704; J3411; J3475; J3480; J7030; J7040; J7120